=== PATIENT | male | born 1935 | race Caucasian/White ===

== ENCOUNTER → 2018-08-06 15:57 | Outpatient (CLI) | payer MEDICARE, OTHER, SELFPAY ==
--- NOTE | 2018-08-06 | DI.RAD.S_ITS ---
PROCEDURE: XR LUMBAR SPINE 2-3V INDICATIONS: LOW BACK PAIN TECHNIQUE: 3 views of the lumbar spine were acquired. COMPARISON: None. FINDINGS: Bones: No fracture or focal osseous destruction. Multilevel degenerative endplate sclerosis and spurring. Diffuse facet arthropathy. Grade 1 retrolisthesis of L1 on L2. Moderate narrowing of the lumbar disc spaces diffusely. Trace anterolisthesis of L4 on L5. There is dextrocurvature of the thoracolumbar junction Soft tissues: Overlying bowel gas pattern is normal. No suspicious soft tissue calcifications. Scattered vascular calcifications seen in the aorta. IMPRESSION: Moderate multilevel lumbar spondylosis and diffuse facet arthropathy. Grade 1 retrolisthesis of L1 on L2. Trace anterolisthesis of L4 on L5. Lateral curvature of the spine as above Dictated by: Curtis Goodman M.D. on 08/06/2018 at 16:58 Approved by: Curtis Goodman M.D. on 08/06/2018 at 17:01
--- NOTE | 2018-08-06 | DI.RAD.S_ITS ---
PROCEDURE: XR SHOULDER LT MIN 2V INDICATIONS: L SHOULDER PAIN TECHNIQUE: 3 views of the shoulder were acquired. COMPARISON: None. FINDINGS: Bones: No fractures or dislocations. No suspicious bony lesions. Visualized ribs appear intact. Moderate acromioclavicular and glenohumeral joint degeneration. Soft tissues: No suspicious soft tissue calcifications. IMPRESSION: Moderate left shoulder joint degeneration. Dictated by: Curtis Goodman M.D. on 08/06/2018 at 17:01 Approved by: Curtis Goodman M.D. on 08/06/2018 at 17:03
== END ==
PROVIDERS: Family Provider Internal Medicine; PCP Internal Medicine; Visit Provider Internal Medicine
DX: M54.5 Low back pain (principal); M47.816 Spondylosis without myelopathy or radiculopathy, lumbar region; M43.16 Spondylolisthesis, lumbar region; M25.512 Pain in left shoulder; M19.012 Primary osteoarthritis, left shoulder
CPT/HCPCS: 72100; 73030

== ENCOUNTER 2018-08-15 13:00 | Inpatient (IN) | payer MEDICARE, OTHER, SELFPAY ==
[2018-08-15] VITALS (15 sets, daily range): BP systolic 131–163; BP diastolic 50–96; PULSE 57–76; RESP 15–20; TEMP 36.4–37; O2SAT 95–100; BMI 25.4
[2018-08-15 13:38] LABS: Add Manual Diff / Slide Review NO; Basophils Absolute Auto 100 /uL (0-100); Basophils Percent Auto 1.2 % (0-2); Eosinophils Absolute Auto 200 /uL (0-450); Eosinophils Percent Auto 3.2 % (2-4); Hemoglobin 7.3 g/dL (13.5-17.5); Lymphocytes Absolute Auto 1700 /uL (1100-4500); Lymphocytes Percent Auto 25.6 % (25-40); Mean Corpuscular HGB Conc 33.6 % (30-36); Mean Corpuscular Hemoglobin 33.2 PG (26-34); Mean Corpuscular Volume 98.8 fL (80-100); Monocytes Absolute Auto 600 /uL (0-900); Monocytes Percent Auto 8.9 % (3-14); Neutrophils Absolute Auto 3900 /uL (1500-7000); Neutrophils Percent Auto 61.1 % (50-75); Platelet Count 264 X10^3/uL (150-400); Red Blood Cell Count 2.19 X10^6/uL (4.5-5.9); Red Cell Distribution Width 14.2 % (11.6-14.8); White Blood Cell Count 6.5 X10^3/uL (4.5-11.0)
[2018-08-15 13:42] LABS: Hematocrit 21.7 % (41-53)
[2018-08-15 13:44] LABS: Prothrombin Time 11.9 SECONDS (10.1-12.7)
--- NOTE | 2018-08-15 13:46 | ED_ITS ---
HPI - Recheck/Abnormal Lab/Rx General Chief Complaint: Recheck/Abnormal Lab/Rx Stated Complaint: states his potasium levels are high Time Seen by Provider: 08/15/18 13:44 Source: patient Mode of arrival: ambulatory Limitations: no limitations History of Present Illness HPI narrative: This is an 83-year-old male who comes for lab abnormalities. Patient had outpatient labs with Dr. Benjamin and was noted that his creatinine and potassium were elevated in the 6 range. Patient states he has felt crummy lately. He was recently having some left shoulder and back pain. 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 He took Mobic for 2 days. He states he just could E afterwards, he felt like nothing tastes did well, he had not have any interest in food. So we just in front he also drinks maybe 3 to 4 glasses with would daily. He states that is usually a combination of water and coffee. He denies any lightheadedness, no passing-out, no chest pain, no shortness of breath no nausea no vomiting. No diarrhea. Patient Diana Ugarte is constipated but is been having bowel movements. He has had frequent urination but states it is less. It does not seem like very small amounts. He has also noticed no changes in coloration. Patient only took 2 days of Mobic. He is on lisinopril, levothyroxine and lovastatin. Denies any blood thinners. No prior surgeries. He states he got a nosebleed a rash while taking the Mobic. Denies tobacco, denies illicit. Has 3 alcoholic drinks weekly. 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 Related Data Home Medications Medication Instructions Recorded Confirmed levothyroxine 175 mcg PO DAILY 08/15/18 08/15/18 lisinopril 5 mg PO DAILY 08/15/18 08/15/18 lovastatin 40 mg PO QPM 08/15/18 08/15/18 Allergies Allergy/AdvReac Type Severity Reaction Status Date / Time codeine Allergy Unknown Verified 08/15/18 13:43 Penicillins Allergy Verified 08/15/18 13:10 Review of Systems Review of Systems ROS Unobtainable: All systems reviewed & are unremarkable except as noted in HPI and below Constitutional Reports anorexia, Denies chills, Denies excessive sweating, Denies fatigue, Denies fever(s), Denies lethargy, Reports poor appetite and Denies weakness Cardiovascular Denies chest pain, Denies edema, Denies irregular heart rhythm, Denies lightheadedness, Denies palpitations, Denies dyspnea, Denies dyspnea on exertion and Denies orthopnea Respiratory Denies change in phlegm color, Denies chest congestion, Denies cough, Denies dyspnea, Denies dyspnea on exertion and Denies wheezing Gastrointestinal Gastrointestinal: Denies abdominal pain, Denies melena, Denies hematochezia, Denies change in bowel habits, Reports early satiety, Denies diarrhea, Denies nausea and Denies vomiting Genitourinary Denies hematuria, Denies difficulty urinating, Denies dysuria, Denies flank pain, Reports urinary frequency, Denies urinary hesitancy, Denies urinary incontinence, Denies urinary urgency and Reports other (smaller amounts) Musculoskeletal Reports back pain, Denies myalgias, Denies arthralgias, Denies muscle weakness, Denies numbness and Denies tingling Neurologic Denies focal weakness, Denies numbness, Denies sensory deficit, Denies tingling and Denies weakness Endocrine Denies excessive sweating, Denies fatigue and Denies palpitations Allergic/Immunologic Denies wheezing [facility] Medical History Hypothyroidism (Acute) Hyperlipidemia (Acute) Hypertension (Acute) Social History household members: spouse Smoking Status: Former smoker alcohol intake: current Social History (Updated 08/15/18 @ 19:07 by Lizette Wilkerson DO) household members: spouse Smoking Status: Former smoker alcohol intake: current substance use type: does not use Exam Narrative Exam Narrative: GENERAL: Alert and oriented x three, well-nourished, well- appearing elderly male in no acute distress. Patient does appear pale. HEENT: Head normocephalic, atraumatic, EOMI, pupils reactive, face symmetric, moist mucous membranes NECK: Supple, full range of motion CARDIOVASCULAR: Regular rate and rhythm without murmurs, rubs or gallops. RESPIRATORY: Breath sounds equal bilaterally, no wheezes rales or rhonchi. ABDOMEN: Soft, nontender. Normoactive bowel sounds all 4 quadrants. No guarding or rebound, rigidity, no mass : No CVA tenderness EXTREMITIES: Normal range of motion, no clubbing or edema. Neurovascularly intact NEUROLOGICAL: Cranial nerves II through XII grossly intact. Moving all extremities SKIN: Warm, dry, no petechiae, no rashes or lesions. Initial Vital Signs Initial Vital Signs: Vital Signs Temperature 97.5 F L 08/15/18 13:04 Pulse Rate 66 08/15/18 13:04 Respiratory Rate 20 08/15/18 13:04 Blood Pressure 151/65 H 08/15/18 13:04 Pulse Oximetry 100 08/15/18 13:04 Course Orders Ordered: ED Orders 08/15/18 13:14 EKG-12 Lead Stat 08/15/18 13:26 CBC [Complete Blood Count AUTO DIFF] Stat Comprehensive Metabolic Panel Stat Lipase Stat Partial Thromboplastin Time Stat Prothrombin Time INR Stat Troponin & CK Cardiac Panel Stat 08/15/18 13:30 EKG-12 Lead Stat 08/15/18 14:13 CT kidney ureter bladder (KUB) Stat 08/15/18 15:02 Urinalysis and Microscopic Stat 08/15/18 15:42 Type and Screen Stat 08/15/18 16:40 Ferritin Urgent Iron Profile (w/ % Saturation) Urgent Potassium Stat 08/15/18 21:00 Potassium Urgent 08/16/18 05:00 Basic Metabolic Panel Routine Complete Blood Count AUTO DIFF Routine Acetaminophen (Tylenol) 650 mg PO Q6HR PRN PRN Reason: As Needed for Fever/Mild Pain Bisacodyl (Dulcolax) 10 mg PO DAILY PRN PRN Reason: Constipation Sodium Chloride (Normal Saline 0.9%) 1,000 mls @ 150 mls/hr IV CONT LEILANI Last Admin: 08/15/18 18:28 Dose: 150 mls/hr Levothyroxine Sodium (Synthroid) 100 mcg PO 0600 LEILANI Levothyroxine Sodium (Synthroid) 75 mcg PO 0600 [facility] Discontinued Medications Albuterol (Ventolin) 2.5 mg INH NOW ONE Stop: 08/15/18 14:22 Last Admin: 08/15/18 14:32 Dose: 2.5 mg Dextrose (D50w) 25 gm IV NOW ONE Stop: 08/15/18 14:22 Last Admin: 08/15/18 14:32 Dose: 25 gm Sodium Chloride (Normal Saline 0.9%) 1,000 mls @ 1,000 mls/hr IV BOLUS ONE Stop: 08/15/18 14:44 Last Infusion: 08/15/18 16:33 Dose: 1,000 mls/hr Admin: 08/15/18 13:50 Dose: 1,000 mls/hr Calcium Gluconate 4.65 meq/ (Sodium Chloride) 60 mls @ 120 mls/hr IV NOW ONE Stop: 08/15/18 13:46 Last Infusion: 08/15/18 15:46 Dose: 0 mls/hr Admin: 08/15/18 14:10 Dose: 120 mls/hr Sodium Chloride (Normal Saline 0.9%) 1,000 mls @ 1,000 mls/hr IV BOLUS ONE Stop: 08/15/18 16:26 Last Admin: 08/15/18 17:22 Dose: 1,000 mls/hr Insulin Human Regular (Humulin R) 10 unit IV NOW ONE Stop: 08/15/18 14:22 Last Admin: 08/15/18 14:32 Dose: 10 unit Sodium Polystyrene Sulfonate (Kayexalate) 30 gm PO NOW ONE Stop: 08/15/18 13:48 Last Admin: 08/15/18 14:11 Dose: 30 gm Vital Signs - 8 hr 08/15/18 13:04 08/15/18 14:00 08/15/18 14:30 Temperature 97.5 F L Pulse Rate 66 60 62 Respiratory Rate 20 15 17 Blood Pressure 151/65 H Blood Pressure [Right Arm] 147/56 H 146/50 H Pulse Oximetry 100 100 100 08/15/18 15:00 08/15/18 15:17 08/15/18 15:30 Temperature Pulse Rate 75 62 62 Respiratory Rate 16 15 Blood Pressure Blood Pressure [Right Arm] 141/58 H 163/66 H 132/54 L Pulse Oximetry 100 95 08/15/18 16:15 08/15/18 16:16 08/15/18 17:16 Temperature 98.4 F 98.6 F Pulse Rate 64 76 64 Respiratory Rate 15 19 Blood Pressure 148/65 H 149/63 H Blood Pressure [Right Arm] 131/64 Pulse Oximetry 100 MDM - Recheck/Abnormal Lab/Rx Lab Data Attestation: I reviewed the patient's lab results. Result diagrams: 08/15/18 13:26 08/15/18 16:40 Lab Results 07/10/19 07/10/19 07/10/19 Range/Units 13:26 13:26 13:26 WBC 6.5 (4.5-11.0) X10^3/uL RBC 2.19 L (4.5-5.9) X10^6/uL Hgb 7.3 L (13.5-17.5) g/dL Hct 21.7 L (41-53) % MCV 98.8 (80-100) fL MCH 33.2 (26-34) PG MCHC 33.6 (30-36) % RDW 14.2 (11.6-14.8) % Plt Count 264 (150-400) X10^3/uL Neut % (Auto) 61.1 (50-75) % Lymph % (Auto) 25.6 (25-40) % [place] % (Auto) 8.9 (3-14) % Eos % (Auto) 3.2 (2-4) % Baso % (Auto) 1.2 (0-2) % Neut # (Auto) 3900 (5640-9921) /uL Lymph # (Auto) 1700 (1145-3841) /uL [place] # (Auto) 600 (0-900) /uL Eos # (Auto) 200 (0-450) /uL Baso # (Auto) 100 (0-100) /uL PT 11.9 (10.1-12.7) SECONDS INR 1.0 (0.9-1.3) APTT 26 L (26.4-36.2) SECONDS Sodium 144 (137-145) mmol/L Potassium 7.1 H* (3.4-5.1) mmol/L Chloride 115 H (98-107) mmol/L Carbon Dioxide 16 L (22-32) mmol/L BUN 109 H* (9-20) mg/dL Creatinine 7.10 H (0.66-1.25) mg/dL Estimated GFR 7.4 L (>60) mL/min BUN/Creatinine Ratio 15.4 (6-22) Glucose 120 H (80-110) mg/dL Calcium 10.2 (8.4-10.2) mg/dL Iron (49-181) ug/dL TIBC (261-462) ug/dL % Saturation (20-50) % Transferrin (206-381) mg/dL Ferritin (17.9-464) ng/mL Total Bilirubin 0.6 (0.2-1.3) mg/dL AST 19 (17-59) IU/L ALT 13 L (21-72) IU/L Alkaline Phosphatase 62 (38-126) U/L Total Creatine Kinase (55-170) U/L CK-MB (CK-2) CK-MB (CK-2) Rel Index Troponin I (0.01-0.034) ng/mL Total Protein 7.8 (6.3-8.2) g/dL Albumin 4.3 (3.5-5.0) g/dL Globulin 3.5 (1.7-4.1) g/dL Albumin/Globulin Ratio 1.2 (1.0-2.8) Lipase (23-300) U/L Specimen Hemolysis Urine Color Urine Appearance Urine pH (4.5-8.0) Ur Specific [place] (1.000-1.035) Urine Protein (Negative) Urine Glucose (UA) (Negative) g/dL Urine Ketones (NEGATIVE) Urine Occult Blood (Negative) Urine Nitrate (Negative) Urine Bilirubin (NEGATIVE) Urine Urobilinogen (0.2) E.U./dL Ur Leukocyte Esterase (NEGATIVE) Urine RBC (0-5/HPF) Urine WBC (0-5/HPF) Ur Squamous Epith Cells (0-5/HPF) Amorphous Sediment Urine Bacteria (None) Ur Culture Indicated? Blood Type Antibody Screen 08/15/18 08/15/18 08/15/18 Range/Units 13:26 15:02 15:42 WBC (4.5-11.0) X10^3/uL RBC (4.5-5.9) X10^6/uL Hgb (13.5-17.5) g/dL Hct (41-53) % MCV (80-100) fL MCH (26-34) PG MCHC (30-36) % RDW (11.6-14.8) % Plt Count (150-400) X10^3/uL Neut % (Auto) (50-75) % Lymph % (Auto) (25-40) % [place] % (Auto) (3-14) % Eos % (Auto) (2-4) % Baso % (Auto) (0-2) % Neut # (Auto) (3147-8201) /uL Lymph # (Auto) (7657-9648) /uL [place] # (Auto) (0-900) /uL Eos # (Auto) (0-450) /uL Baso # (Auto) (0-100) /uL PT (10.1-12.7) SECONDS INR (0.9-1.3) APTT (26.4-36.2) SECONDS Sodium Cancelled (137-145) mmol/L Potassium Cancelled (3.4-5.1) mmol/L Chloride Cancelled (98-107) mmol/L Carbon Dioxide Cancelled (22-32) mmol/L BUN Cancelled (9-20) mg/dL Creatinine Cancelled (0.66-1.25) mg/dL Estimated GFR Cancelled (>60) mL/min BUN/Creatinine Ratio Cancelled (6-22) Glucose Cancelled (80-110) mg/dL Calcium Cancelled (8.4-10.2) mg/dL Iron (49-181) ug/dL TIBC (261-462) ug/dL % Saturation (20-50) % Transferrin (206-381) mg/dL Ferritin (17.9-464) ng/mL Total Bilirubin Cancelled (0.2-1.3) mg/dL AST Cancelled (17-59) IU/L ALT Cancelled (21-72) IU/L Alkaline Phosphatase Cancelled (38-126) U/L Total Creatine Kinase 82 (55-170) U/L CK-MB (CK-2) TNP CK-MB (CK-2) Rel Index TNP Troponin I 0.020 (0.01-0.034) ng/mL Total Protein Cancelled (6.3-8.2) g/dL Albumin Cancelled (3.5-5.0) g/dL Globulin Cancelled (1.7-4.1) g/dL Albumin/Globulin Ratio Cancelled (1.0-2.8) Lipase 197 (23-300) U/L Specimen Hemolysis Cancelled Urine Color Yellow Urine Appearance Sl cloudy Urine pH 5.0 (4.5-8.0) Ur Specific [place] 1.020 (1.000-1.035) Urine Protein 1+ H (Negative) Urine Glucose (UA) Negative (Negative) g/dL Urine Ketones Negative (NEGATIVE) Urine Occult Blood 1+ H (Negative) Urine Nitrate Negative (Negative) Urine Bilirubin Negative (NEGATIVE) Urine Urobilinogen 0.2 (0.2) E.U./dL Ur Leukocyte Esterase Negative (NEGATIVE) Urine RBC 1-5/hpf (0-5/HPF) Urine WBC 0-1/hpf (0-5/HPF) Ur Squamous Epith Cells None seen (0-5/HPF) Amorphous Sediment 2+ Urine Bacteria Few (2-10) H (None) Ur Culture Indicated? Cult not indicated Blood Type A Positive Antibody Screen Negative 08/15/18 08/15/18 08/15/18 Range/Units 16:40 16:40 16:40 WBC (4.5-11.0) X10^3/uL RBC (4.5-5.9) X10^6/uL Hgb (13.5-17.5) g/dL Hct (41-53) % MCV (80-100) fL MCH (26-34) PG MCHC (30-36) % RDW (11.6-14.8) % Plt Count (150-400) X10^3/uL Neut % (Auto) (50-75) % Lymph % (Auto) (25-40) % [place] % (Auto) (3-14) % Eos % (Auto) (2-4) % Baso % (Auto) (0-2) % Neut # (Auto) (6799-3092) /uL Lymph # (Auto) (7315-9415) /uL [place] # (Auto) (0-900) /uL Eos # (Auto) (0-450) /uL Baso # (Auto) (0-100) /uL PT (10.1-12.7) SECONDS INR (0.9-1.3) APTT (26.4-36.2) SECONDS Sodium (137-145) mmol/L Potassium 6.0 H (3.4-5.1) mmol/L Chloride (98-107) mmol/L Carbon Dioxide (22-32) mmol/L BUN (9-20) mg/dL Creatinine (0.66-1.25) mg/dL Estimated GFR (>60) mL/min BUN/Creatinine Ratio (6-22) Glucose (80-110) mg/dL Calcium (8.4-10.2) mg/dL Iron 124 (49-181) ug/dL TIBC 240 L (261-462) ug/dL % Saturation 52 H (20-50) % Transferrin 179 L (206-381) mg/dL Ferritin 550.0 H (17.9-464) ng/mL Total Bilirubin (0.2-1.3) mg/dL AST (17-59) IU/L ALT (21-72) IU/L Alkaline Phosphatase (38-126) U/L Total Creatine Kinase (55-170) U/L CK-MB (CK-2) CK-MB (CK-2) Rel Index Troponin I (0.01-0.034) ng/mL Total Protein (6.3-8.2) g/dL Albumin (3.5-5.0) g/dL Globulin (1.7-4.1) g/dL Albumin/Globulin Ratio (1.0-2.8) Lipase (23-300) U/L Specimen Hemolysis Urine Color Urine Appearance Urine pH (4.5-8.0) Ur Specific [place] (1.000-1.035) Urine Protein (Negative) Urine Glucose (UA) (Negative) g/dL Urine Ketones (NEGATIVE) Urine Occult Blood (Negative) Urine Nitrate (Negative) Urine Bilirubin (NEGATIVE) Urine Urobilinogen (0.2) E.U./dL Ur Leukocyte Esterase (NEGATIVE) Urine RBC (0-5/HPF) Urine WBC (0-5/HPF) Ur Squamous Epith Cells (0-5/HPF) Amorphous Sediment Urine Bacteria (None) Ur Culture Indicated? Blood Type Antibody Screen Imaging Data CT scan - abdomen: Radiologist's impression: [place] [address] CT Scan Report Signed Patient: Brad Benoit [facility]#: [id number] : 6Acct:[id number] Age/Sex: 83 / MDate of Service: 08/15/18 Loc: ED Accession Number: [id number] Procedure: CT kidney ureter bladder (KUB) Ordering Provider: Lizette Wilkerson D.O. PROCEDURE: CT KIDNEY URETER BLADDER (KUB) INDICATIONS: renal failure, hyperkalemia. TECHNIQUE: Noncontrast 5 mm thick sections acquired from the diaphragms to the symphysis. 5 mm thick coronal and sagittal reformats were then performed. For radiation dose reduction, the following was used: automated exposure control, adjustment of mA and/or kV according to patient size. COMPARISON: None. FINDINGS: Image quality: Excellent. Lung bases: Lung bases are clear. Heart size is normal. Urinary system: Both kidneys are normal in size. No kidney stones. No hydronephrosis or perinephric fat stranding. There is an exophytic water density upper pole right renal cortical small cysts requiring no followup. Both ureters appear non-dilated throughout their expected courses. Bladder wall thickness is normal; no calcified bladder stones. There is a bladder wall diverticulum at the posterior midline measuring up to 4.0 x 3.1 cm seen centered on series 2 image 64. This is located above the level of the ureteral insertions. Other solid organs: Liver is normal in size. Gallbladder is partially contracted. Pancreas is normal in contours. Spleen is normal in size. No adrenal nodules. Peritoneum and bowel: Unenhanced bowel loops demonstrate normal wall thickness and caliber. No free fluid or air. Nodes and vessels: No retroperitoneal or mesenteric adenopathy by size criteria. Aorta and inferior vena cava are normal in caliber. Abdominal wall: No ventral hernias. Pelvis: No free pelvic fluid. No inguinal hernias or adenopathy. Bones: No suspicious bony lesions. No vertebral body compression fractures. IMPRESSION: No hydronephrosis or nephrolithiasis found. Renal parenchyma is within normal limits for age and body habitus. Source of current renal insufficiency is not found. Incidental note is made of the posterior bladder wall diverticulum measuring only 4.0 x 3.1 cm without impingement on the expected course of the distal ureters bilaterally which insert on the bladder wall below the level of the diverticulum. Dictated by: Doe Alvarez M.D. on 08/15/2018 at 15:08 Approved by: Doe Alvarez M.D. on 08/15/2018 at 15:17 ECG Data Attestation: I personally reviewed and interpreted this ECG as follows: Prior ECG tracings: not available for review Interpretation: Sinus bradycardia rate of 59 P are 166 QRS of 93 and QTC of 383. Patient has peaked T-waves no depression, no sinusoidal changes. No prior's available for review. MDM Narrative Medical decision making narrative: Patient's creatinine and potassium are equal at 7.1. He has peaked T-waves. He has no acute changes other than some taste changes and feeling crummy. Patient potentially could have a combination with his Mobic and lisinopril that caused his renal failure although I do not have any prior labs that are recent for comparison. He also appears to be anemic and unclear if this is new. Type and cross ordered. CT shows patient has incidental no a posterior bladder wall diverticulum measuring 4 x 3 cm without impingement on the expected course of the distal ureters bilaterally. Otherwise there are no obvious causes for obstruction or patient's renal dysfunction. I spoke with Dr. Yee who accepts. Patient I did discuss his code status, he is full code but asks for no prolonged coding and he does not want prolonged intubation. Discharge Plan Departure Patient Disposition: Admitted As Inpatient Clinical Impression: Hyperkalemia, Acute renal failure, Anemia Discharge Date/Time: 08/15/18 16:34 Interventions: ED Discharge Assessment Last Done: 08/15/18 16:34 Admit Date/Time: 08/15/18 15:45 Admit Provider: Anatoliy Yee
[2018-08-15 13:47] LABS: PTT Partial Thromboplastin Tim 26 SECONDS (26.4-36.2)
[2018-08-15] MEDS: SODIUM CHLORIDE 0.9% 1,000 ML 1000 ML IV ×2 (13:50→17:22)
[2018-08-15 14:08] LABS: Creatine Kinase 82 U/L (55-170); Lipase 197 U/L (23-300)
[2018-08-15] MEDS: CALCIUM GLUCONATE 4.65 MEQ in SODIUM CHLORIDE 0.9% 50 ML 120 ML IV (14:10)
[2018-08-15 14:11] LABS: Alanine Aminotransferase 13 IU/L (21-72); Albumin 4.3 g/dL (3.5-5.0); Albumin Globulin Ratio 1.2 (1.0-2.8); Alkaline Phosphatase 62 U/L (38-126); Aspartate Aminotransferase 19 IU/L (17-59); BUN Creatinine Ratio 15.4 (6-22); Bilirubin Total 0.6 mg/dL (0.2-1.3); Calcium 10.2 mg/dL (8.4-10.2); Carbon Dioxide 16 mmol/L (22-32); Chloride 115 mmol/L (98-107); Estimated Glomerular Filt Rate 7.4 mL/min (>60); Globulin 3.5 g/dL (1.7-4.1); Glucose 120 mg/dL (80-110); Sodium 144 mmol/L (137-145); Total Protein 7.8 g/dL (6.3-8.2)
[2018-08-15] MEDS: SODIUM POLYSTYRENE SULFON/SORB 15 GM/60 ML CUP 30 GM PO ×2 (14:11→22:47)
--- NOTE | 2018-08-15 14:13 | DI.CT.S_ITS ---
PROCEDURE: CT KIDNEY URETER BLADDER (KUB) INDICATIONS: renal failure, hyperkalemia. TECHNIQUE: Noncontrast 5 mm thick sections acquired from the diaphragms to the symphysis. 5 mm thick coronal and sagittal reformats were then performed. For radiation dose reduction, the following was used: automated exposure control, adjustment of mA and/or kV according to patient size. COMPARISON: None. FINDINGS: Image quality: Excellent. Lung bases: Lung bases are clear. Heart size is normal. Urinary system: Both kidneys are normal in size. No kidney stones. No hydronephrosis or perinephric fat stranding. There is an exophytic water density upper pole right renal cortical small cysts requiring no followup. Both ureters appear non-dilated throughout their expected courses. Bladder wall thickness is normal; no calcified bladder stones. There is a bladder wall diverticulum at the posterior midline measuring up to 4.0 x 3.1 cm seen centered on series 2 image 64. This is located above the level of the ureteral insertions. Other solid organs: Liver is normal in size. Gallbladder is partially contracted. Pancreas is normal in contours. Spleen is normal in size. No adrenal nodules. Peritoneum and bowel: Unenhanced bowel loops demonstrate normal wall thickness and caliber. No free fluid or air. Nodes and vessels: No retroperitoneal or mesenteric adenopathy by size criteria. Aorta and inferior vena cava are normal in caliber. Abdominal wall: No ventral hernias. Pelvis: No free pelvic fluid. No inguinal hernias or adenopathy. Bones: No suspicious bony lesions. No vertebral body compression fractures. IMPRESSION: No hydronephrosis or nephrolithiasis found. Renal parenchyma is within normal limits for age and body habitus. Source of current renal insufficiency is not found. Incidental note is made of the posterior bladder wall diverticulum measuring only 4.0 x 3.1 cm without impingement on the expected course of the distal ureters bilaterally which insert on the bladder wall below the level of the diverticulum. Dictated by: Doe Alvarez M.D. on 08/15/2018 at 15:08 Approved by: Doe Alvarez M.D. on 08/15/2018 at 15:17
[2018-08-15 14:17] LABS: HEMOLYSIS 75 (0-50)
[2018-08-15 14:21] LABS: Blood Urea Nitrogen 109 mg/dL (9-20)
[2018-08-15 14:30] LABS: Potassium 7.1 mmol/L (3.4-5.1)
[2018-08-15] MEDS: ALBUTEROL 2.5 MG/3 ML NEB (ADULT) INH (14:32)
[2018-08-15] MEDS: DEXTROSE 50 % IN WATER 25 GM/50 ML SYRINGE IV (14:32)
[2018-08-15] MEDS: INSULIN REGULAR 100 UNIT/ML 3 ML VIAL 10 UNIT IV (14:32)
[2018-08-15 15:11] LABS: Appearance Urine UA SL CLOUDY; Bilirubin Urine UA NEGATIVE (NEGATIVE); Color Urine UA YELLOW; Glucose Urine UA NEGATIVE (Negative); Ketones Urine UA NEGATIVE (NEGATIVE); Leukocyte Esterase Urine UA NEGATIVE (NEGATIVE); Nitrite Urine UA NEGATIVE (Negative); Occult Blood Urine UA 1+ (Negative); Protein Urine UA 1+ (Negative); Urobilinogen Urine UA 0.2 E.U./dL (0.2)
[2018-08-15 15:24] LABS: RBC Urine 1-5/HPF (0-5/HPF); WBC Urine 0-1/HPF (0-5/HPF)
[2018-08-15 15:25] LABS: Amorphous Sediment Urine 2+; Bacteria Urine Few (2-10); Culture Indicated Urine Cult Not Indicated; Squamous Epithelial Cell Urine None Seen (0-5/HPF)
--- NOTE | 2018-08-15 16:22 | P.HP_ITS ---
History of Present Illness Date Patient Seen: 08/15/18 Chief complaint: states his potasium levels are high Narrative: Patient is an 83-year-old male with history of hypertension, hyperlipidemia, hypothyroidism sent to the ER by his PCP Dr. Benjamin due to concerning labs. Outpatient blood work showed new renal failure with creatinine 6.0, BUN 100 and acute hyperkalemia with potassium 6.3. Blood work in the ER s howed creatinine 7.10 109, potassium 7.1. Baseline BUN is 21 and creatinine 1.1 on 01/17/2017. Patient received initial treatment in ER consisting of calcium gluconate, albuterol, insulin and glucose, and Kayexalate. He also received initial 2 L IV fluid. A repeat serum potassium is pending. EKG showed peaked T-wave in lead V3 but otherwise unremarkable. CT KUB noncontrast did not show hydronephrosis and both kidneys were noted normal in size and echogenicity. He has nonsignificant right kidney small cysts and bladder diverticulum. Patient also noted to be severely anemic with hemoglobin 7.3 and hematocrit 21.7 on ER labs. Patient has not been feeling well for about a week. He reports diminished appetite with decreased intake of food and water as well as awful taste in his mouth. He has had pain across his upper abdomen for a while now. He reports 5 lb weight loss in the past month and 10 lb weight loss in the past year. His last colonoscopy was about 10 years ago. He denies nausea, vomiting, diarrhea, melena or bright red blood. He reports frequent urination in small amounts but has not noticed drop in urine volume. He was started on Mobic last week due to complaints of nonacute pain in his shoulder and legs although other symptoms started prior to the Mobic. His other medications which are lisinopril, lovastatin and levothyroxine are not new to him. He denies chest pain, dyspnea. He has history of aortic stenosis, denies CAD. He has family history of CAD. Patient History Medical History (Updated 08/15/18 @ 16:30 by nAatoliy Yee MD) Hypothyroidism (Acute) Hyperlipidemia (Acute) Hypertension (Acute) Social History household members: spouse Smoking Status: Former smoker alcohol intake: current Family & Social History Safety & Behavioral: Feels Safe in Current Yes Environment Been Physically Hurt or No Threatened By a Person Tobacco & Substance use: Smoking Status Former smoker alcohol intake frequency a few times a week Substance Use Type does not use Meds Home Medications Medication Instructions Recorded Confirmed Type levothyroxine 175 mcg PO DAILY 08/15/18 08/15/18 History lisinopril 5 mg PO DAILY 08/15/18 08/15/18 History lovastatin 40 mg PO QPM 08/15/18 08/15/18 History Allergies Allergy/AdvReac Type Severity Reaction Status Date / Time codeine Allergy Unknown Verified 08/15/18 13:43 Penicillins Allergy Verified 08/15/18 13:10 Review of Systems Review of Systems All systems reviewed & are unremarkable except as noted in HPI and below Exam Vital Signs (past 8 hours): - 08/15/18 13:04 08/15/18 15:17 08/15/18 16:15 Temperature 97.5 F L 98.4 F Pulse Rate 66 62 64 Respiratory Rate 20 15 15 Blood Pressure 151/65 H Blood Pressure [Right Arm] 163/66 H 131/64 Pulse Oximetry 100 95 100 Oxygen Delivery Method Room Air Narrative Exam Narrative: GENERAL: Alert pleasant gentleman in no acute distress HEAD: Atraumatic. Normocephalic. EYES: Pupils equal, round and reactive. Extraocular motions intact. No scleral icterus. No injection or drainage. OROPHARYNX: Unremarkable NECK: Trachea midline. No JVD or lymphadenopathy. CARDIOVASCULAR: Regular rate and rhythm, 3/6 aortic systolic murmur RESPIRATORY: Clear to auscultation bilaterally. GASTROINTESTINAL: Abdomen nondistended, soft, non-tender. No hepato- splenomegaly, no palpable masses. EXTREMITIES: No peripheral edema. NEUROLOGICAL: Alert, well oriented, speech is intact, normal bilateral upper and lower extremity strength SKIN: warm, dry, no rash Objective Labs Result Diagrams: 08/15/18 13:26 08/15/18 13:26 Labs: Laboratory Results - last 24 hr 08/15/18 08/15/18 08/15/18 13:26 13:26 13:26 WBC 6.5 RBC 2.19 L Hgb 7.3 L Hct 21.7 L MCV 98.8 MCH 33.2 MCHC 33.6 RDW 14.2 Plt Count 264 Neut % (Auto) 61.1 Lymph % (Auto) 25.6 [place] % (Auto) 8.9 Eos % (Auto) 3.2 Baso % (Auto) 1.2 Neut # (Auto) 3900 Lymph # (Auto) 1700 [place] # (Auto) 600 Eos # (Auto) 200 Baso # (Auto) 100 PT 11.9 INR 1.0 APTT 26 L Sodium 144 Potassium 7.1 H* Chloride 115 H Carbon Dioxide 16 L BUN 109 H* Creatinine 7.10 H Estimated GFR 7.4 L BUN/Creatinine Ratio 15.4 Glucose 120 H Calcium 10.2 Total Bilirubin 0.6 AST 19 ALT 13 L Alkaline Phosphatase 62 Total Creatine Kinase CK-MB (CK-2) CK-MB (CK-2) Rel Index Troponin I Total Protein 7.8 Albumin 4.3 Globulin 3.5 Albumin/Globulin Ratio 1.2 Lipase Specimen Hemolysis Urine Color Urine Appearance Urine pH Ur Specific [place] Urine Protein Urine Glucose (UA) Urine Ketones Urine Occult Blood Urine Nitrate Urine Bilirubin Urine Urobilinogen Ur Leukocyte Esterase Urine RBC Urine WBC Ur Squamous Epith Cells Amorphous Sediment Urine Bacteria Ur Culture Indicated? Blood Type 08/15/18 08/15/18 08/15/18 13:26 15:02 15:42 WBC RBC Hgb Hct MCV MCH MCHC RDW Plt Count Neut % (Auto) Lymph % (Auto) [place] % (Auto) Eos % (Auto) Baso % (Auto) Neut # (Auto) Lymph # (Auto) [place] # (Auto) Eos # (Auto) Baso # (Auto) PT INR APTT Sodium Cancelled Potassium Cancelled Chloride Cancelled Carbon Dioxide Cancelled BUN Cancelled Creatinine Cancelled Estimated GFR Cancelled BUN/Creatinine Ratio Cancelled Glucose Cancelled Calcium Cancelled Total Bilirubin Cancelled AST Cancelled ALT Cancelled Alkaline Phosphatase Cancelled Total Creatine Kinase 82 CK-MB (CK-2) TNP CK-MB (CK-2) Rel Index TNP Troponin I 0.020 Total Protein Cancelled Albumin Cancelled Globulin Cancelled Albumin/Globulin Ratio Cancelled Lipase 197 Specimen Hemolysis Cancelled Urine Color Yellow Urine Appearance Sl cloudy Urine pH 5.0 Ur Specific [place] 1.020 Urine Protein 1+ H Urine Glucose (UA) Negative Urine Ketones Negative Urine Occult Blood 1+ H Urine Nitrate Negative Urine Bilirubin Negative Urine Urobilinogen 0.2 Ur Leukocyte Esterase Negative Urine RBC 1-5/hpf Urine WBC 0-1/hpf Ur Squamous Epith Cells None seen Amorphous Sediment 2+ Urine Bacteria Few (2-10) H Ur Culture Indicated? Cult not indicated Blood Type A Positive Assessment & Plan Assessment & Plan narrative: This is an 83-year-old male with history of hype rtension, hyperlipidemia, hypothyroidism admitted due to severe renal failure and hyperkalemia as well as severe anemia. 1. Renal failure, likely acute -etiology likely pre renal possibly due to recent GI bleed and decreased p.o. intake versus intrarenal source; postobstructive unlikely with KUB CT showing absence of hydronephrosis -urinalysis with few bacteria, no excess RBC or WBC, no casts -non-anion gap metabolic acidosis present with bicarb 16 associated with renal failure -patient is making urine -volume resuscitate with IV fluids -recheck labs in a.m. -discussed with patient may need transfer to tertiary hospital for dialysis if renal failure not improving 2. Hyperkalemia, severe, due to renal failure -initial treatment in ED including fluids, calcium gluconate, insulin, glucose, albuterol, Kayexalate -peaked T-wave on EKG -cardiac monitoring in ICU -check repeat K -hold lisinopril and lovastatin 3. Hypothyroidism -continue levothyroxine 175 mcg q.d.
[2018-08-15 16:57] LABS: HEMOLYSIS < 15 (0-50)
[2018-08-15 17:13] LABS: HEMOLYSIS 17 (0-50); Iron 124 ug/dL (49-181)
[2018-08-15 17:24] LABS: Percent Iron Saturation 52 % (20-50); Total Iron Binding Capacity 240 ug/dL (261-462); Transferrin 179 mg/dL (206-381)
[2018-08-15] MEDS: SODIUM CHLORIDE 0.9% 1,000 ML 150 ML IV (18:28)
[2018-08-15 21:28] LABS: HEMOLYSIS < 15 (0-50)
[2018-08-15 21:29] LABS: Potassium 6.5 mmol/L (3.4-5.1)
[2018-08-15 22:07] LABS: BUN Creatinine Ratio 14.7 (6-22); Blood Urea Nitrogen 97 mg/dL (9-20); Calcium 9.5 mg/dL (8.4-10.2); Carbon Dioxide 15 mmol/L (22-32); Chloride 120 mmol/L (98-107); Estimated Glomerular Filt Rate 8.1 mL/min (>60); Glucose 106 mg/dL (80-110); HEMOLYSIS < 15 (0-50); Sodium 145 mmol/L (137-145)
[2018-08-15 22:08] LABS: Potassium 6.5 mmol/L (3.4-5.1)
[2018-08-15 22:16] LABS: Fractionated Inspired Oxygen 21; HCO3 ABG 13 mmol/L (22-26); Oxygen Saturation ABG 97 % (95-100); PCO2 ABG 26.1 mmHg (35-45); PO2 ABG 100 mmHg (80-100); TCO2 ABG 14 mmol/L (21-31); pH ABG 7.31 (7.35-7.45)
--- NOTE | 2018-08-15 22:25 | PC.NURSE ---
2200- Lavelle RICHEY notified of elevated potassium. Repeat labs drawn. Patient remains in NSR with transient bradycardia to 57. EKG morphology remains the same as admit. IVF infusing at 150cc/hr per order. ABG done and it shows mild metabolic acidosis. Lavelle monk. Will repeat Kaexalate when available from pharmacy. Creatinine trending down now 6.6 was 7.1. Labs to be repeated in the AM.
[2018-08-15 22:33] LABS: Magnesium 2.2 mg/dL (1.6-2.3)
[2018-08-15] MEDS: DEXTROSE 5% IV (23:19)
[2018-08-15] MEDS: SODIUM BICARB IV (23:19)
[2018-08-15] MEDS: WATER IV (23:19)
[2018-08-16] VITALS (23 sets, daily range): BP systolic 101–148; BP diastolic 45–85; PULSE 45–65; RESP 13–21; TEMP 36.4–36.9; O2SAT 92–100
[2018-08-16 01:48] LABS: BUN Creatinine Ratio 14.3 (6-22); Blood Urea Nitrogen 93 mg/dL (9-20); Calcium 9.3 mg/dL (8.4-10.2); Carbon Dioxide 16 mmol/L (22-32); Chloride 119 mmol/L (98-107); Estimated Glomerular Filt Rate 8.2 mL/min (>60); Glucose 124 mg/dL (80-110); HEMOLYSIS < 15 (0-50); Sodium 145 mmol/L (137-145)
[2018-08-16 05:18] LABS: BUN Creatinine Ratio 14.9 (6-22); Blood Urea Nitrogen 94 mg/dL (9-20); Calcium 9.4 mg/dL (8.4-10.2); Carbon Dioxide 17 mmol/L (22-32); Chloride 117 mmol/L (98-107); Estimated Glomerular Filt Rate 8.5 mL/min (>60); Glucose 119 mg/dL (80-110); HEMOLYSIS < 15 (0-50); Sodium 144 mmol/L (137-145)
[2018-08-16 05:20] LABS: Potassium 5.4 mmol/L (3.4-5.1)
[2018-08-16 05:47] LABS: Basophils Absolute Auto 0 /uL (0-100); Basophils Percent Auto 0.6 % (0-2); Eosinophils Absolute Auto 100 /uL (0-450); Eosinophils Percent Auto 2.4 % (2-4); Lymphocytes Absolute Auto 1400 /uL (1100-4500); Lymphocytes Percent Auto 23.6 % (25-40); Mean Corpuscular Hemoglobin 32.8 PG (26-34); Mean Corpuscular Volume 99.3 fL (80-100); Monocytes Absolute Auto 500 /uL (0-900); Monocytes Percent Auto 8.7 % (3-14); Neutrophils Absolute Auto 3800 /uL (1500-7000); Neutrophils Percent Auto 64.7 % (50-75); Platelet Count 194 X10^3/uL (150-400); Red Blood Cell Count 1.91 X10^6/uL (4.5-5.9); Red Cell Distribution Width 13.9 % (11.6-14.8); White Blood Cell Count 5.9 X10^3/uL (4.5-11.0)
[2018-08-16 05:56] LABS: Hemoglobin 6.3 g/dL (13.5-17.5)
[2018-08-16 05:57] LABS: Add Manual Diff / Slide Review SLIDE REVIEW
[2018-08-16] MEDS: LEVOTHYROXINE 100 MCG TABLET PO (06:20)
[2018-08-16] MEDS: LEVOTHYROXINE 75 MCG TABLET PO (06:20)
[2018-08-16 06:58] LABS: Anisocytosis 1+
--- NOTE | 2018-08-16 08:41 | CM.DANOTE ---
DCP: Case received, EMR reviewed and met with patient. Introduced self and role. Was able to obtain baseline health history and information from patient. Daughter, Ijeoma Camacho, also at bedside. Patient is an 83 year old male who admitted yesterday afternoon as advised from his primary care provider, secondary to lab results. He was admitted to the care of the hospitalist team. PCP: Dr. Benjamin. Payer: confirmed: Medicare/[facility]. Patient came to the hospital due to increased Potassium levels. He had been at his primary care clinic, lab results noted increase in potassium, as well as creatnine levels. Patient holds diagnosis of acute renal failure, as well as hyperkalemia, which he is being treated for. Met with patient in his room, daughterIjeoma at bedside. Patient pleasant, alert and oriented. Patient and daughter stated, some of the medications that he is on may have caused an increase in potassium. Patient is also noted to be anemic. He resides in [facility] with his spouse, Carol. He is independent at home. He stated that they are in the process of selling his home, and moving into [facility]. He stated that they are on the waiting list for the independent apartment. P: DCP to continue to follow closely. Patient should be able to go home when he is medically stable. Edilma Pa RN/Logistics Manager
--- NOTE | 2018-08-16 12:41 | PM.PN.1 ---
Subjective Date Patient Seen: 08/16/18 Interval history: Patient is 83-year-old male with history of hypertension, hyperlipidemia, hypothyroidism admitted due to severe renal failure and hyperkalemia as well as severe anemia. Overnight patient continues to feel reasonably well but does state his appetite is better and he does not have the awful taste in his mouth. He is maintaining good urine output. He is getting transfused 2 units PRBC. Stool was guaiac negative. Exam Vital Signs (past 8 hours): - 08/16/18 05:00 08/16/18 06:00 08/16/18 06:09 Temperature Pulse Rate 64 52 L 47 L Respiratory Rate 21 17 13 Blood Pressure 117/48 L 123/54 L 124/53 L Pulse Oximetry 100 99 100 08/16/18 06:42 08/16/18 06:59 08/16/18 07:00 Temperature 98.3 F 98.3 F Pulse Rate 51 L 52 L 59 L Respiratory Rate 17 21 18 Blood Pressure 121/55 L 101/45 L 101/45 L Pulse Oximetry 92 08/16/18 08:23 08/16/18 10:43 08/16/18 10:47 Temperature 98.3 F 98.3 F Pulse Rate 59 L 57 L 52 L Respiratory Rate 19 17 18 Blood Pressure 119/60 122/53 L 122/53 L Pulse Oximetry 100 08/16/18 11:03 Temperature 98.5 F Pulse Rate 56 L Respiratory Rate 15 Blood Pressure 127/52 L Pulse Oximetry Oxygen Delivery Method Room Air Oxygen Flow Rate 0 Narrative Exam Narrative: General: Alert, pleasant and cooperative male in no acute distress Lungs: Clear to auscultation Heart: Regular rhythm with previously noted moderate aortic stenosis murmur Extremities: No edema Neurological: Seems well oriented, nonfocal Skin: No rash or petechiae Objective Labs Result Diagrams: 08/16/18 04:55 08/16/18 04:55 Labs: Laboratory Results - last 24 hr 08/15/18 08/15/18 08/15/18 13:26 13:26 13:26 WBC 6.5 RBC 2.19 L Hgb 7.3 L Hct 21.7 L MCV 98.8 MCH 33.2 MCHC 33.6 RDW 14.2 Plt Count 264 Neut % (Auto) 61.1 Lymph % (Auto) 25.6 [place] % (Auto) 8.9 Eos % (Auto) 3.2 Baso % (Auto) 1.2 Neut # (Auto) 3900 Lymph # (Auto) 1700 [place] # (Auto) 600 Eos # (Auto) 200 Baso # (Auto) 100 RBC Morphology Anisocytosis PT 11.9 INR 1.0 APTT 26 L ABG pH ABG pCO2 ABG pO2 ABG HCO3 ABG Total CO2 ABG O2 Saturation ABG Base Excess FiO2 Sodium 144 Potassium 7.1 H* Chloride 115 H Carbon Dioxide 16 L BUN 109 H* Creatinine 7.10 H Estimated GFR 7.4 L BUN/Creatinine Ratio 15.4 Glucose 120 H Calcium 10.2 Magnesium Iron TIBC % Saturation Transferrin Ferritin Total Bilirubin 0.6 AST 19 ALT 13 L Alkaline Phosphatase 62 Total Creatine Kinase CK-MB (CK-2) CK-MB (CK-2) Rel Index Troponin I Total Protein 7.8 Albumin 4.3 Globulin 3.5 Albumin/Globulin Ratio 1.2 Lipase Specimen Hemolysis Urine Color Urine Appearance Urine pH Ur Specific [place] Urine Protein Urine Glucose (UA) Urine Ketones Urine Occult Blood Urine Nitrate Urine Bilirubin Urine Urobilinogen Ur Leukocyte Esterase Urine RBC Urine WBC Ur Squamous Epith Cells Amorphous Sediment Urine Bacteria Ur Culture Indicated? Nasal Screen MRSA (PCR) Blood Type Antibody Screen Crossmatch 08/15/18 08/15/18 08/15/18 13:26 15:02 15:42 WBC RBC Hgb Hct MCV MCH MCHC RDW Plt Count Neut % (Auto) Lymph % (Auto) [place] % (Auto) Eos % (Auto) Baso % (Auto) Neut # (Auto) Lymph # (Auto) [place] # (Auto) Eos # (Auto) Baso # (Auto) RBC Morphology Anisocytosis PT INR APTT ABG pH ABG pCO2 ABG pO2 ABG HCO3 ABG Total CO2 ABG O2 Saturation ABG Base Excess FiO2 Sodium Cancelled Potassium Cancelled Chloride Cancelled Carbon Dioxide Cancelled BUN Cancelled Creatinine Cancelled Estimated GFR Cancelled BUN/Creatinine Ratio Cancelled Glucose Cancelled Calcium Cancelled Magnesium Iron TIBC % Saturation Transferrin Ferritin Total Bilirubin Cancelled AST Cancelled ALT Cancelled Alkaline Phosphatase Cancelled Total Creatine Kinase 82 CK-MB (CK-2) TNP CK-MB (CK-2) Rel Index TNP Troponin I 0.020 Total Protein Cancelled Albumin Cancelled Globulin Cancelled Albumin/Globulin Ratio Cancelled Lipase 197 Specimen Hemolysis Cancelled Urine Color Yellow Urine Appearance Sl cloudy Urine pH 5.0 Ur Specific [place] 1.020 Urine Protein 1+ H Urine Glucose (UA) Negative Urine Ketones Negative Urine Occult Blood 1+ H Urine Nitrate Negative Urine Bilirubin Negative Urine Urobilinogen 0.2 Ur Leukocyte Esterase Negative Urine RBC 1-5/hpf Urine WBC 0-1/hpf Ur Squamous Epith Cells None seen Amorphous Sediment 2+ Urine Bacteria Few (2-10) H Ur Culture Indicated? Cult not indicated Nasal Screen MRSA (PCR) Blood Type A Positive Antibody Screen Negative Crossmatch See Detail 08/15/18 08/15/18 08/15/18 16:40 16:40 16:40 WBC RBC Hgb Hct MCV MCH MCHC RDW Plt Count Neut % (Auto) Lymph % (Auto) [place] % (Auto) Eos % (Auto) Baso % (Auto) Neut # (Auto) Lymph # (Auto) [place] # (Auto) Eos # (Auto) Baso # (Auto) RBC Morphology Anisocytosis PT INR APTT ABG pH ABG pCO2 ABG pO2 ABG HCO3 ABG Total CO2 ABG O2 Saturation ABG Base Excess FiO2 Sodium Potassium 6.0 H Chloride Carbon Dioxide BUN Creatinine Estimated GFR BUN/Creatinine Ratio Glucose Calcium Magnesium Iron 124 TIBC 240 L % Saturation 52 H Transferrin 179 L Ferritin 550.0 H Total Bilirubin AST ALT Alkaline Phosphatase Total Creatine Kinase CK-MB (CK-2) CK-MB (CK-2) Rel Index Troponin I Total Protein Albumin Globulin Albumin/Globulin Ratio Lipase Specimen Hemolysis Urine Color Urine Appearance Urine pH Ur Specific [place] Urine Protein Urine Glucose (UA) Urine Ketones Urine Occult Blood Urine Nitrate Urine Bilirubin Urine Urobilinogen Ur Leukocyte Esterase Urine RBC Urine WBC Ur Squamous Epith Cells Amorphous Sediment Urine Bacteria Ur Culture Indicated? Nasal Screen MRSA (PCR) Blood Type Antibody Screen Crossmatch 08/15/18 08/15/18 08/15/18 19:10 21:14 21:14 WBC RBC Hgb Hct MCV MCH MCHC RDW Plt Count Neut % (Auto) Lymph % (Auto) [place] % (Auto) Eos % (Auto) Baso % (Auto) Neut # (Auto) Lymph # (Auto) [place] # (Auto) Eos # (Auto) Baso # (Auto) RBC Morphology Anisocytosis PT INR APTT ABG pH ABG pCO2 ABG pO2 ABG HCO3 ABG Total CO2 ABG O2 Saturation ABG Base Excess FiO2 Sodium 145 Potassium 6.5 H* 6.5 H* Chloride 120 H Carbon Dioxide 15 L BUN 97 H Creatinine 6.60 H Estimated GFR 8.1 L BUN/Creatinine Ratio 14.7 Glucose 106 Calcium 9.5 Magnesium Iron TIBC % Saturation Transferrin Ferritin Total Bilirubin AST ALT Alkaline Phosphatase Total Creatine Kinase CK-MB (CK-2) CK-MB (CK-2) Rel Index Troponin I Total Protein Albumin Globulin Albumin/Globulin Ratio Lipase Specimen Hemolysis Urine Color Urine Appearance Urine pH Ur Specific [place] Urine Protein Urine Glucose (UA) Urine Ketones Urine Occult Blood Urine Nitrate Urine Bilirubin Urine Urobilinogen Ur Leukocyte Esterase Urine RBC Urine WBC Ur Squamous Epith Cells Amorphous Sediment Urine Bacteria Ur Culture Indicated? Nasal Screen MRSA (PCR) Negative for mrsa Blood Type Antibody Screen Crossmatch 08/15/18 08/15/18 08/16/18 21:14 22:05 01:20 WBC RBC Hgb Hct MCV MCH MCHC RDW Plt Count Neut % (Auto) Lymph % (Auto) [place] % (Auto) Eos % (Auto) Baso % (Auto) Neut # (Auto) Lymph # (Auto) [place] # (Auto) Eos # (Auto) Baso # (Auto) RBC Morphology Anisocytosis PT INR APTT ABG pH 7.31 L ABG pCO2 26.1 L ABG pO2 100 ABG HCO3 13 L ABG Total CO2 14 L ABG O2 Saturation 97 ABG Base Excess -13.0 L FiO2 21 Sodium 145 Potassium 6.0 H Chloride 119 H Carbon Dioxide 16 L BUN 93 H Creatinine 6.50 H Estimated GFR 8.2 L BUN/Creatinine Ratio 14.3 Glucose 124 H Calcium 9.3 Magnesium 2.2 Iron TIBC % Saturation Transferrin Ferritin Total Bilirubin AST ALT Alkaline Phosphatase Total Creatine Kinase CK-MB (CK-2) CK-MB (CK-2) Rel Index Troponin I Total Protein Albumin Globulin Albumin/Globulin Ratio Lipase Specimen Hemolysis Urine Color Urine Appearance Urine pH Ur Specific [place] Urine Protein Urine Glucose (UA) Urine Ketones Urine Occult Blood Urine Nitrate Urine Bilirubin Urine Urobilinogen Ur Leukocyte Esterase Urine RBC Urine WBC Ur Squamous Epith Cells Amorphous Sediment Urine Bacteria Ur Culture Indicated? Nasal Screen MRSA (PCR) Blood Type Antibody Screen Crossmatch 08/16/18 08/16/18 04:55 04:55 WBC 5.9 RBC 1.91 L Hgb 6.3 L* Hct 19.0 L* MCV 99.3 MCH 32.8 MCHC 33.0 RDW 13.9 Plt Count 194 Neut % (Auto) 64.7 Lymph % (Auto) 23.6 L [place] % (Auto) 8.7 Eos % (Auto) 2.4 Baso % (Auto) 0.6 Neut # (Auto) 3800 Lymph # (Auto) 1400 [place] # (Auto) 500 Eos # (Auto) 100 Baso # (Auto) 0 RBC Morphology See below Anisocytosis 1+ H PT INR APTT ABG pH ABG pCO2 ABG pO2 ABG HCO3 ABG Total CO2 ABG O2 Saturation ABG Base Excess FiO2 Sodium 144 Potassium 5.4 H Chloride 117 H Carbon Dioxide 17 L BUN 94 H Creatinine 6.30 H Estimated GFR 8.5 L BUN/Creatinine Ratio 14.9 Glucose 119 H Calcium 9.4 Magnesium Iron TIBC % Saturation Transferrin Ferritin Total Bilirubin AST ALT Alkaline Phosphatase Total Creatine Kinase CK-MB (CK-2) CK-MB (CK-2) Rel Index Troponin I Total Protein Albumin Globulin Albumin/Globulin Ratio Lipase Specimen Hemolysis Urine Color Urine Appearance Urine pH Ur Specific [place] Urine Protein Urine Glucose (UA) Urine Ketones Urine Occult Blood Urine Nitrate Urine Bilirubin Urine Urobilinogen Ur Leukocyte Esterase Urine RBC Urine WBC Ur Squamous Epith Cells Amorphous Sediment Urine Bacteria Ur Culture Indicated? Nasal Screen MRSA (PCR) Blood Type Antibody Screen Crossmatch Assessment & Plan Assessment & Plan narrative: This is an 83-year-old male with history of hypertension, hyperlipidemia, hypothyroidism admitted due to severe renal failure and hyperkalemia as well as severe anemia. 1. Renal failure, undetermined acuity -admit BUN 109, creatinine 7.10; current BUN 94, creatinine 6.30 with IV hydration -per PCP Dr. Benjamin, patient's last renal function testing was normal around September 2017 -etiology and chronicity undetermined; postobstructive unlikely with KUB CT showing absence of hydronephrosis; patient was recently started on Mobic but took only a couple of doses then stopped and he was already feeling poorly in the preceding week, and otherwise he has not taken any NSAIDs -urinalysis with few bacteria, no excess RBC or WBC, no casts -urine output > 0.5 ml/kg/hr -non-anion gap metabolic acidosis present and patient received IV sodium bicarbonate and oral sodium bicarbonate -change IV fluid to half normal saline at 150 cc/hour, due to hyperchloremia -serum protein electrophoresis, immunoelectrophoresis and serum light chain assay are pending to rule out multiple myeloma as cause of unexplained anemia and renal failure -recheck labs at 5:00 p.m. and tomorrow a.m. -no need for urgent dialysis but patient will clearly need Nephrology follow-up 2. Hyperkalemia, severe, due to renal failure -admit potassium 7.1, current potassium 5.4 -initial treatment in ED including fluids, calcium gluconate, insulin, glucose, albuterol, Kayexalate -peaked T-wave on EKG -cardiac monitoring normal -discontinued lisinopril 3. Normocytic anemia, unknown chronicity -receiving 2 units PRBC on 08/16/2018 -admit hemoglobin 7.3, hematocrit 21.7, dropped slightly after hydration -not on aspirin or chronic NSAIDs, no reported melena or BRBPR -last colonoscopy reported 10 years ago -stool guaiac negative, iron profile and ferritin are not indicative of chronic iron deficiency -anemia severety seems out of proportion to renal failure -serum protein electrophoresis, immunoelectrophoresis, and serum light chain assay pending to rule out multiple myeloma as cause of anemia and renal failure -consider inpatient or outpatient Hematology consult -repeat H&H at 5:00 p.m. and tomorrow a.m. 4. Hypothyroidism -continue levothyroxine 175 mcg q.d. Continue inpatient management of severe renal failure, hyperkalemia and anemia. Patient's status changed to floor care. He may be stable for discharge home tomorrow with close outpatient follow-up. Quality VTE Deep Vein Thrombosis/Pulmonary Embolism Present on Admission: No
[2018-08-16] MEDS: SODIUM CHLORIDE 0.45% 1,000 ML 150 ML IV ×2 (14:12→21:18)
--- NOTE | 2018-08-16 14:33 | PC.NURSE ---
PT REPORTS NO PAIN , IS ALERT/ORIENTED AND COMPLIANT WITH ALL CARE OFFERED. HE TOOK SHOWER IN BETWEEN 2U PRBC TRANSFUSION- WHICH HE TOLERATED WELL. HE AMBULATED TO SHOWER AND ABOUT IN ROOM PERIODICALLY- HAS VOIDED POST CATHETER REMOVAL AND HAD 2 BM'S (GUAIAC -) RESTING COMFORTABLY AT PRESENT AND TOLERATING REGULAR DIET- REPEAT LABS TO BE DRAWN AT 1700
[2018-08-16 17:48] LABS: Hematocrit 27.8 % (41-53); Hemoglobin 9.4 g/dL (13.5-17.5)
[2018-08-16 18:06] LABS: BUN Creatinine Ratio 14.7 (6-22); Blood Urea Nitrogen 87 mg/dL (9-20); Calcium 9.4 mg/dL (8.4-10.2); Carbon Dioxide 17 mmol/L (22-32); Chloride 113 mmol/L (98-107); Estimated Glomerular Filt Rate 9.2 mL/min (>60); Glucose 133 mg/dL (80-110); HEMOLYSIS < 15 (0-50); Potassium 5.1 mmol/L (3.4-5.1); Sodium 144 mmol/L (137-145)
[2018-08-17] MEDS: SODIUM CHLORIDE 0.45% 1,000 ML 150 ML IV (03:52)
[2018-08-17 03:58] VITALS: BP 153/63; PULSE 46; RESP 16; TEMP 36.8; O2SAT 97
[2018-08-17 05:26] LABS: Add Manual Diff / Slide Review NO; Basophils Absolute Auto 100 /uL (0-100); Eosinophils Absolute Auto 200 /uL (0-450); Eosinophils Percent Auto 2.9 % (2-4); Hemoglobin 8.2 g/dL (13.5-17.5); Lymphocytes Absolute Auto 1400 /uL (1100-4500); Lymphocytes Percent Auto 22.6 % (25-40); Mean Corpuscular Hemoglobin 32.2 PG (26-34); Mean Corpuscular Volume 94.7 fL (80-100); Monocytes Absolute Auto 500 /uL (0-900); Monocytes Percent Auto 8.5 % (3-14); Neutrophils Absolute Auto 4000 /uL (1500-7000); Platelet Count 178 X10^3/uL (150-400); Red Blood Cell Count 2.56 X10^6/uL (4.5-5.9); Red Cell Distribution Width 15.2 % (11.6-14.8); White Blood Cell Count 6.1 X10^3/uL (4.5-11.0)
[2018-08-17 05:27] LABS: BUN Creatinine Ratio 14.8 (6-22); Blood Urea Nitrogen 86 mg/dL (9-20); Calcium 9.1 mg/dL (8.4-10.2); Carbon Dioxide 17 mmol/L (22-32); Chloride 115 mmol/L (98-107); Estimated Glomerular Filt Rate 9.4 mL/min (>60); Glucose 95 mg/dL (80-110); HEMOLYSIS < 15 (0-50); Sodium 142 mmol/L (137-145)
[2018-08-17 05:29] LABS: Potassium 5.1 mmol/L (3.4-5.1)
[2018-08-17 05:30] LABS: Hematocrit 24.2 % (41-53)
[2018-08-17 07:00] VITALS: O2SAT 95
[2018-08-17 07:56] VITALS: BP 148/58; PULSE 59; RESP 16; TEMP 36.6; O2SAT 98
[2018-08-17] MEDS: LEVOTHYROXINE 75 MCG TABLET PO (08:43)
[2018-08-17] MEDS: LEVOTHYROXINE 100 MCG TABLET PO (08:43)
--- NOTE | 2018-08-17 08:53 | PM.PN.1 ---
Subjective Date Patient Seen: 08/17/18 Time Patient Seen: 08:53 Exam Vital Signs (past 8 hours): - 08/17/18 03:58 08/17/18 07:56 Temperature 98.2 F 97.9 F Pulse Rate 46 L 59 L Respiratory Rate 16 16 Blood Pressure 153/63 H 148/58 H Pulse Oximetry 97 98 Oxygen Delivery Method Room Air Oxygen Flow Rate 0 Objective Labs Result Diagrams: 08/17/18 05:02 08/17/18 05:02 Labs: Laboratory Results - last 24 hr 08/15/18 08/16/18 08/16/18 15:42 17:00 17:00 WBC RBC Hgb 9.4 L Hct 27.8 L MCV MCH MCHC RDW Plt Count Neut % (Auto) Lymph % (Auto) [place] % (Auto) Eos % (Auto) Baso % (Auto) Neut # (Auto) Lymph # (Auto) [place] # (Auto) Eos # (Auto) Baso # (Auto) Sodium 144 Potassium 5.1 Chloride 113 H Carbon Dioxide 17 L BUN 87 H Creatinine 5.90 H Estimated GFR 9.2 L BUN/Creatinine Ratio 14.7 Glucose 133 H Calcium 9.4 Blood Type A Positive Antibody Screen Negative Crossmatch See Detail 08/17/18 08/17/18 05:02 05:02 WBC 6.1 RBC 2.56 L Hgb 8.2 L Hct 24.2 L MCV 94.7 D MCH 32.2 MCHC 34.0 RDW 15.2 H Plt Count 178 Neut % (Auto) 65.0 Lymph % (Auto) 22.6 L [place] % (Auto) 8.5 Eos % (Auto) 2.9 Baso % (Auto) 1.0 Neut # (Auto) 4000 Lymph # (Auto) 1400 [place] # (Auto) 500 Eos # (Auto) 200 Baso # (Auto) 100 Sodium 142 Potassium 5.1 Chloride 115 H Carbon Dioxide 17 L BUN 86 H Creatinine 5.80 H Estimated GFR 9.4 L BUN/Creatinine Ratio 14.8 Glucose 95 Calcium 9.1 Blood Type Antibody Screen Crossmatch Assessment & Plan Assessment & Plan narrative: This is an 83-year-old male with history of hypertension, hyperlipidemia, hypothyroidism admitted due to severe renal failure and hyperkalemia as well as severe anemia. 1. Renal failure, undetermined acuity -admit BUN 109, creatinine 7.10; current BUN 94, creatinine 6.30 with IV hydration -per PCP Dr. Benjamin, patient's last renal function testing was normal around September 2017 -etiology and chronicity undetermined; postobstructive unlikely with KUB CT showing absence of hydronephrosis; patient was recently started on Mobic but took only a couple of doses then stopped and he was already feeling poorly in the preceding week, and otherwise he has not taken any NSAIDs -urinalysis with few bacteria, no excess RBC or WBC, no casts -urine output > 0.5 ml/kg/hr -non-anion gap metabolic acidosis present and patient received IV sodium bicarbonate and oral sodium bicarbonate -change IV fluid to half normal saline at 150 cc/hour, due to hyperchloremia -serum protein electrophoresis, immunoelectrophoresis and serum light chain assay are pending to rule out multiple myeloma as cause of unexplained anemia and renal failure -recheck labs at 5:00 p.m. and tomorrow a.m. -no need for urgent dialysis but patient will clearly need Nephrology follow-up 2. Hyperkalemia, severe, due to renal failure -admit potassium 7.1, current potassium 5.4 -initial treatment in ED including fluids, calcium gluconate, insulin, glucose, albuterol, Kayexalate -peaked T-wave on EKG -cardiac monitoring normal -discontinued lisinopril 3. Normocytic anemia, unknown chronicity -receiving 2 units PRBC on 08/16/2018 -admit hemoglobin 7.3, hematocrit 21.7, dropped slightly after hydration -not on aspirin or chronic NSAIDs, no reported melena or BRBPR -last colonoscopy reported 10 years ago -stool guaiac negative, iron profile and ferritin are not indicative of chronic iron deficiency -anemia severety seems out of proportion to renal failure -serum protein electrophoresis, immunoelectrophoresis, and serum light chain assay pending to rule out multiple myeloma as cause of anemia and renal failure -consider inpatient or outpatient Hematology consult -repeat H&H at 5:00 p.m. and tomorrow a.m. 4. Hypothyroidism -continue levothyroxine 175 mcg q.d. Quality VTE Deep Vein Thrombosis/Pulmonary Embolism Present on Admission: No
--- NOTE | 2018-08-17 09:23 | P.DS_ITS ---
History of Present Illness Date Patient Seen: 08/17/18 Time Patient Seen: 10:33 Chief complaint: states his potasium levels are high Narrative: Patient is an 83-year-old male with history of hypertension, hyperlipidemia, hypothyroidism sent to the ER by his PCP Dr. Benjamin due to concerning labs. Outpatient blood work showed new renal failure with creatinine 6.0, BUN 100 and acute hyperkalemia with potassium 6.3. Blood work in the ER showed creatinine 7.10 109, potassium 7.1. Baseline BUN is 21 and creatinine 1.1 on 01/17/2017. Patient received initial treatment in ER consisting of calcium gluconate, albuterol, insulin and glucose, and Kayexalate. He also received initial 2 L IV fluid. A repeat serum potassium is pending. EKG showed peaked T-wave in lead V3 but otherwise unremarkable. CT KUB noncontrast did not show hydronephrosis and both kidneys were noted normal in size and echogenicity. He has nonsignificant right kidney small cysts and bladder diverticulum. Patient also noted to be severely anemic with hemoglobin 7.3 and hematocrit 21.7 on ER labs. Patient has not been feeling well for about a week. He reports diminished appetite with decreased intake of food and water as well as awful taste in his mouth. He has had pain across his upper abdomen for a while now. He reports 5 lb weight loss in the past month and 10 lb weight loss in the past year. His last colonoscopy was about 10 years ago. He denies nausea, vomiting, diarrhea, melena or bright red blood. He reports frequent urination in small amounts but has not noticed drop in urine volume. He was started on Mobic last week due to complaints of nonacute pain in his shoulder and legs although other symptoms started prior to the Mobic. His other medications which are lisinopril, lovas tatin and levothyroxine are not new to him. He denies chest pain, dyspnea. He has history of aortic stenosis, denies CAD. He has family history of CA Discharge Providers Date of admission: 08/15/18 15:45 Discharge Date: 08/17/18 Primary care physician: Jay Benjamin MD Discharge provider: Marleni Wang MD Summary Discharge Diagnosis: 1. Renal failure, undetermined 2. Hyperkalemia 3. Normocytic anemia, unknown chronicity 4. Hypothyroidism Hospital Course: 1. Renal failure, undetermined acuity -admit BUN 109, creatinine 7.10; current BUN 86, creatinine 5.8 with IV hydration -per PCP Dr. Benjamin, patient's last renal function testing was normal around September 2017 -etiology and chronicity undetermined; postobstructive unlikely with KUB CT showing absence of hydronephrosis; patient was recently started on Mobic but took only a couple of doses then stopped and he was already feeling poorly in the preceding week, and otherwise he has not taken any NSAIDs -urinalysis with few bacteria, no excess RBC or WBC, no casts -urine output > 0.5 ml/kg/hr, 300 ml in the last 4 hours. -non-anion gap metabolic acidosis present and patient received IV sodium bicarbonate and oral sodium bicarbonate -serum protein electrophoresis, immunoelectrophoresis and serum light chain assay are pending to rule out multiple myeloma as cause of unexplained anemia and renal failure -no need for urgent dialysis but patient will clearly need Nephrology follow-up, discussed with Dr. Hannon who will see him next week. 2. Hyperkalemia, severe, due to renal failure -admit potassium 7.1, current potassium 5.1 -initial treatment in ED including fluids, calcium gluconate, insulin, glucose, albuterol, Kayexalate -peaked T-wave on EKG -cardiac monitoring normal -discontinued lisinopril 3. Normocytic anemia, unknown chronicity -received 2 units PRBC on 08/16/2018/ Hgb 8.2 today. -admit hemoglobin 7.3, hematocrit 21.7, dropped slightly after hydration -not on aspirin or chronic NSAIDs, no reported melena or BRBPR -last colonoscopy reported 10 years ago -stool guaiac negative, iron profile and ferritin are not indicative of chronic iron deficiency -anemia severety seems out of proportion to renal failure -serum protein electrophoresis, immunoelectrophoresis, and serum light chain assay pending to rule out multiple myeloma as cause of anemia and renal failure -Follow up with Dr. Benjamin for repeat testing in 3 days and then with Nephrology - Dr. Hannon, potentially also with Oncology. 4. Hypothyroidism -continue levothyroxine 175 mcg q.d. Total time of 35 minutes today. Exam Vital Signs (past 8 hours): - 08/17/18 03:58 08/17/18 07:00 08/17/18 07:56 Temperature 98.2 F 97.9 F Pulse Rate 46 L 59 L Respiratory Rate 16 16 Blood Pressure 153/63 H 148/58 H Pulse Oximetry 97 95 98 Oxygen Delivery Method Room Air Oxygen Flow Rate 0 Objective Labs Result Diagrams: 08/17/18 05:02 08/17/18 05:02 Labs: Laboratory Results - last 24 hr 08/15/18 08/16/18 08/16/18 15:42 17:00 17:00 WBC RBC Hgb 9.4 L Hct 27.8 L MCV MCH MCHC RDW Plt Count Neut % (Auto) Lymph % (Auto) [place] % (Auto) Eos % (Auto) Baso % (Auto) Neut # (Auto) Lymph # (Auto) [place] # (Auto) Eos # (Auto) Baso # (Auto) Sodium 144 Potassium 5.1 Chloride 113 H Carbon Dioxide 17 L BUN 87 H Creatinine 5.90 H Estimated GFR 9.2 L BUN/Creatinine Ratio 14.7 Glucose 133 H Calcium 9.4 Blood Type A Positive Antibody Screen Negative Crossmatch See Detail 08/17/18 08/17/18 05:02 05:02 WBC 6.1 RBC 2.56 L Hgb 8.2 L Hct 24.2 L MCV 94.7 D MCH 32.2 MCHC 34.0 RDW 15.2 H Plt Count 178 Neut % (Auto) 65.0 Lymph % (Auto) 22.6 L [place] % (Auto) 8.5 Eos % (Auto) 2.9 Baso % (Auto) 1.0 Neut # (Auto) 4000 Lymph # (Auto) 1400 [place] # (Auto) 500 Eos # (Auto) 200 Baso # (Auto) 100 Sodium 142 Potassium 5.1 Chloride 115 H Carbon Dioxide 17 L BUN 86 H Creatinine 5.80 H Estimated GFR 9.4 L BUN/Creatinine Ratio 14.8 Glucose 95 Calcium 9.1 Blood Type Antibody Screen Crossmatch Discharge Plan Discharge Plan Patient Disposition: Home Discharge comment: Follow up with Dr. Benjamin for lab testing on Monday Make appointment with Dr. Hannon, the engineering laboratory technician in [place] at [facility] in one week. Discharge Med Rec/Prescriptions Prescriptions: Continued levothyroxine 175 mcg tablet 175 mcg PO DAILY RF: 0 lovastatin 40 mg Tablet 40 mg PO QPM RF: 0 Discontinued lisinopril 5 mg Tablet 5 mg PO DAILY RF: 0 Follow up/Referrals: Jay Benjamin MD [Primary Care Provider] - Provider Discharge Instructions Diet: Diet as Tolerated Visit Report/Discharge Packet Instructions: Acute Renal Failure, DI for Hyperkalemia, Hyperkalemia Discharge Data Primary Care Provider: Jay Benjamin Attending Provider: Anatoliy Yee Admit Date/Time: 08/15/18 15:45 Discharges patient from system. Discharge Date/Time: 08/17/18 10:45 Quality VTE Deep Vein Thrombosis/Pulmonary Embolism Present on Admission: No
--- NOTE | 2018-08-17 10:42 | CM.DANOTE ---
Discharged awake, alert, oriented. NAD. VSS. PIVs d/c'd. Discharge instructions reviewed with pt. All personal effects with patient.
--- NOTE | 2018-08-17 13:00 | CM.DPC ---
DCP: continued: case received, EMR reviewed and d/c to home order noted. RN Crow's nursing notes show that pt did d/c home this morning as per plan.
[2018-08-18 14:10] LABS: Free Kappa Light Chain 15.7 mg/L (3.3-19.4); Free Kappa/ Lambda Ratio < 0.01 (0.26-1.65); Free Lambda 33331.3 mg/L (5.7-26.3)
[2018-08-22 00:35] LABS: Abnormal Protein Band 1 0.9 g/dL (NONE DETECTED); Albumin 3.3 g/dL (3.8-4.8); Alpha 1 Globulin 0.3 g/dL (0.2-0.3); Alpha 2 Globulin 0.6 g/dL (0.5-0.9); Beta 1 Globulin 0.5 g/dL (0.4-0.6); Gamma Globulin 0.4 g/dL (0.8-1.7); Protein, Total 6.2 g/dL (6.1-8.1)
== END 2018-08-17 10:45 | disposition home or self-care (01) | DRG 683 ==
LOC: ED 15:24 → ICU 16:23
PROVIDERS: Nurse Practitioner Adult Health; Nurse Practitioner Family; Admitting Provider Internal Medicine; Emergency Provider Emergency Medicine; Family Provider Internal Medicine; PCP Internal Medicine; Visit Provider Internal Medicine
DX: N19 Unspecified kidney failure (principal); E87.2 Acidosis; E87.5 Hyperkalemia; D64.9 Anemia, unspecified; Z87.891 Personal history of nicotine dependence; E03.9 Hypothyroidism, unspecified
CPT/HCPCS: 36415; 36430; 36600; 51701; 74176; 80048; 80053; 81001; 82550; 82728; 82784; 82805; 83540; 83550; 83690; 83735; 83883; 84132; 84155; 84165; 84484; 85014; 85018; 85025; 85610; 85730; 86334; 86850; 86900; 86901; 87797; 93005; 96361; 96365; 96366; 96375; 99285; P9016; J0610; J7050; J7613

== ENCOUNTER → 2018-08-28 08:49 | Outpatient (CLI) | payer MEDICARE, OTHER, SELFPAY ==
[2018-08-15 16:34] VITALS: BMI 25.4
[2018-08-28 09:56] LABS: Albumin 4.4 g/dL (3.5-5.0); Blood Urea Nitrogen 80 mg/dL (9-20); Carbon Dioxide 18 mmol/L (22-32); Chloride 105 mmol/L (98-107); Estimated Glomerular Filt Rate 9.6 mL/min (>60); Glucose 107 mg/dL (80-110); HEMOLYSIS < 15 (0-50); Phosphorous 6.9 mg/dL (2.3-3.7); Sodium 138 mmol/L (137-145)
[2018-08-28 10:08] LABS: Potassium 5.6 mmol/L (3.4-5.1)
[2018-08-30 15:08] LABS: Complement C3 122 mg/dL
[2018-08-30 18:48] LABS: ANA Screen, IFA Negative (Negative)
[2018-09-01 19:53] LABS: ANCA Screen Positive (Negative); P-ANCA Titer 1:40 titer (<1:20)
== END ==
PROVIDERS: PCP Internal Medicine; Visit Provider Internal Medicine Nephrology
DX: N17.9 Acute kidney failure, unspecified (principal)
CPT/HCPCS: 36415; 80069; 83520; 86021; 86038; 86160

== ENCOUNTER 2018-11-10 09:37 | Observation (INO) | payer MEDICARE, OTHER, SELFPAY ==
[2018-08-15 16:34] VITALS: BMI 25.4
[2018-11-10] VITALS (7 sets, daily range): BP systolic 102–161; BP diastolic 64–81; PULSE 64–99; RESP 13–22; TEMP 36.6–37; O2SAT 94–99; BMI 25.5; BMI 24.5
--- NOTE | 2018-11-10 09:38 | ED.OVERDOSE ---
HPI - Overdose General Chief Complaint: Toxicology Problem Stated Complaint: accidental overdose Time Seen by Provider: 11/10/18 09:46 Source: patient and EMS Mode of arrival: EMS Limitations: no limitations History of Present Illness HPI Narrative: Patient is a 83 year old male who presents after an accidental overdose of amlodipine. 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 He clearly just moved yesterday the bottles were flipped. He accidentally took 10 tablets of 2.5 mg of amlodipine at 8:45 a.m. in the morning. He immediately called his doctor told him to call 911. EMS arrived 30 minutes after his ingestion and he was immediately given charcoal. He has no complaints. Poison Control was contacted from the field and again by myself in the emergency department. Amlodipine is long-acting currently recommending monitoring him for 12 hours. Because he takes a daily they do not suspect him to have multiple complications he also got charcoal which should help. MD complaint: accidental overdose Onset (ago): minute(s) Related Data Home Medications Medication Instructions Recorded Confirmed levothyroxine 175 mcg PO DAILY 08/15/18 11/10/18 lovastatin 40 mg PO QPM 08/15/18 11/10/18 acetaminophen [Tylenol] 650 mg PO BIDAC 11/10/18 11/10/18 amlodipine 2.5 mg PO DAILY 11/10/18 11/10/18 dexamethasone 40 mg PO QWEEK 11/10/18 11/10/18 Allergies Allergy/AdvReac Type Severity Reaction Status Date / Time codeine Allergy Unknown Verified 08/15/18 13:43 Penicillins Allergy Verified 08/15/18 13:10 Review of Systems Review of Systems Narrative: GENERAL: Denies chills, fatigue, malaise, fever, sweats, travel HEENT: Denies sinus pain, ear pain, sore throat, difficulty swallowing, neck pain RESPIRATORY: Denies dyspnea, cough, wheezing, hemoptysis, sputum. CARDIOVASCULAR: Denies chest pain, palpitations, orthopnea, edema GASTROINTESTINAL: Denies nausea, vomiting, abdominal pain, diarrhea, constipation, melena. : Denies dysuria, frequency, incontinence, hematuria, urinary retention, flank pain. MUSCULOSKELETAL: Denies weakness, joint pain, or bony pain SKIN: No rash, no erythema, no pruritus NEUROLOGIC: Denies weakness, dizziness, headache, numbness, change in speech, confusion PSYCHIATRIC: No concerning psychosocial issues. 12 point review of systems is negative except for those stated above and HPI [facility] Medical History (Updated 11/10/18 @ 12:42 by Curtis Silva, JENNIFER) Aortic stenosis (Acute) Hemodialysis patient (Acute) History of chemotherapy (Acute) Hyperlipidemia (Acute) Hypertension (Acute) Hypothyroidism (Acute) Multiple myeloma (Acute) Surgical History (Updated 11/10/18 @ 12:44 by Curtis Silva RN) History of tonsillectomy (Acute) S/P right rotator cuff repair (Acute) Social History household members: spouse Smoking Status: Former smoker alcohol intake: current substance use type: does not use Social History household members: spouse Smoking Status: Former smoker alcohol intake: current substance use type: does not use Exam Initial Vital Signs Initial Vital Signs: Vital Signs Temperature 98.2 F 11/10/18 09:29 Pulse Rate 69 11/10/18 09:29 Respiratory Rate 17 11/10/18 09:29 Blood Pressure 161/71 H 11/10/18 09:29 Pulse Oximetry 99 11/10/18 09:29 GENERAL: Alert well-appearing elderly and in no acute distress. HEENT: Head atraumatic,EOMI, pupils reactive, face symmetric, CARDIOVASCULAR: Regular rate and rhythm without murmurs, rubs or gallops. Catheter noted in right chest RESPIRATORY: Breath sounds equal bilaterally, no wheezes rales or rhonchi. ABDOMEN: Soft, nontender. Normoactive bowel sounds all 4 quadrants. No guarding or rebound. EXTREMITIES: Normal range of motion, no clubbing or edema. Neurovascularly intact NEUROLOGICAL: Alert and oriented x4.Normal gait and speech. Cranial nerves II through XII grossly intact. SKIN: Warm, dry, no laceration, no petechiae, no rashes or lesions. Course Orders Ordered: ED Orders 11/10/18 09:15 Acetaminophen Stat Complete Blood Count AUTO DIFF Stat Comprehensive Metabolic Panel Stat Ethanol (ETOH) Stat Salicylate Stat Troponin & CK Cardiac Panel Stat 11/10/18 09:24 EKG-12 Lead Routine 11/10/18 12:00 Urine Drug Screen, Rapid Stat Sodium Chloride (Normal Saline 0.9%) 1,000 mls @ 150 mls/hr IV CONT LEILANI Last Admin: 11/10/18 10:19 Dose: 150 mls/hr Documented by: JADE Vital Signs Vital signs: Vital Signs - 8 hr 11/10/18 09:29 11/10/18 10:00 11/10/18 10:30 Temperature 98.2 F Pulse Rate 69 99 H 65 Respiratory Rate 17 15 14 Blood Pressure 161/71 H Blood Pressure [Right Arm] 102/81 145/66 H Pulse Oximetry 99 96 96 11/10/18 11:02 Temperature Pulse Rate 64 Respiratory Rate 13 Blood Pressure Blood Pressure [Right Arm] 151/64 H Pulse Oximetry 97 MDM - Overdose Lab Data Attestation: I reviewed the patient's lab results. Result diagrams: 11/10/18 09:15 11/10/18 09:15 Labs: Lab Results 11/10/18 11/10/18 Range/Units 09:15 09:15 WBC 3.3 L (4.5-11.0) X10^3/uL RBC 2.62 L (4.5-5.9) X10^6/uL Hgb 7.9 L (13.5-17.5) g/dL Hct 23.4 L (41-53) % MCV 89.3 (80-100) fL MCH 30.2 (26-34) PG MCHC 33.8 (30-36) % RDW 17.0 H (11.6-14.8) % Plt Count 237 (150-400) X10^3/uL Neut % (Auto) 73.0 (50-75) % Lymph % (Auto) 16.0 L (25-40) % [place] % (Auto) 7.1 (3-14) % Eos % (Auto) 3.2 (2-4) % Baso % (Auto) 0.7 (0-2) % Neut # (Auto) 2400 (6208-1106) /uL Lymph # (Auto) 500 L (5157-9807) /uL [place] # (Auto) 200 (0-900) /uL Eos # (Auto) 100 (0-450) /uL Baso # (Auto) 0 (0-100) /uL Sodium 137 (137-145) mmol/L Potassium 4.3 (3.4-5.1) mmol/L Chloride 96 L (98-107) mmol/L Carbon Dioxide 31 (22-32) mmol/L BUN 26 H (9-20) mg/dL Creatinine 3.30 H (0.66-1.25) mg/dL Estimated GFR 18.0 L (>60) mL/min BUN/Creatinine Ratio 7.9 (6-22) Glucose 135 H (80-110) mg/dL Calcium 9.0 (8.4-10.2) mg/dL Total Bilirubin 0.6 (0.2-1.3) mg/dL AST 22 (17-59) IU/L ALT 19 L (21-72) IU/L Alkaline Phosphatase 90 (38-126) U/L Total Creatine Kinase 41 L (55-170) U/L CK-MB (CK-2) TNP CK-MB (CK-2) Rel Index TNP Troponin I 0.028 (0.01-0.034) ng/mL Total Protein 6.4 (6.3-8.2) g/dL Albumin 3.7 (3.5-5.0) g/dL Globulin 2.7 (1.7-4.1) g/dL Albumin/Globulin Ratio 1.4 (1.0-2.8) Salicylates < 1.0 (<20) mg/dL Acetaminophen < 10 L (10-30) ug/mL Ethyl Alcohol < 10 ( - 10) mg/dL MDM Narrative Medical decision making narrative: Patient he is on dialysis he was supposed to have today at 1:45 a.m. it has already been rescheduled. He goes Monday sometimes gets it Monday. The patient is hemodynamically stable. Needs to be monitored for at least 12 hours. He has no complaints. Dr. wu updated on patient's symptoms and test results agrees with observation Discharge Plan Departure Patient Disposition: Admitted as Observation Clinical Impression: Calcium channel juliann overdose Qualifiers: Encounter type: initial encounter Injury intent: accidental or unintentional Qualified Code(s): T46.1X1A - Poisoning by calcium-channel blockers, accidental (unintentional), initial encounter Discharge Date/Time: 11/10/18 11:59 Referrals: Jay Benjamin MD [Primary Care Provider] - Admit Date/Time: 11/10/18 11:53 Admit Provider: Loly Wu
[2018-11-10 09:42] LABS: Add Manual Diff / Slide Review NO; Basophils Absolute Auto 0 /uL (0-100); Basophils Percent Auto 0.7 % (0-2); Eosinophils Absolute Auto 100 /uL (0-450); Eosinophils Percent Auto 3.2 % (2-4); Hemoglobin 7.9 g/dL (13.5-17.5); Lymphocytes Absolute Auto 500 /uL (1100-4500); Mean Corpuscular HGB Conc 33.8 % (30-36); Mean Corpuscular Hemoglobin 30.2 PG (26-34); Mean Corpuscular Volume 89.3 fL (80-100); Monocytes Absolute Auto 200 /uL (0-900); Monocytes Percent Auto 7.1 % (3-14); Neutrophils Absolute Auto 2400 /uL (1500-7000); Platelet Count 237 X10^3/uL (150-400); Red Blood Cell Count 2.62 X10^6/uL (4.5-5.9); White Blood Cell Count 3.3 X10^3/uL (4.5-11.0)
[2018-11-10 09:45] LABS: Hematocrit 23.4 % (41-53)
[2018-11-10 09:48] LABS: Acetaminophen < 10 ug/mL (10-30); Alanine Aminotransferase 19 IU/L (21-72); Albumin 3.7 g/dL (3.5-5.0); Albumin Globulin Ratio 1.4 (1.0-2.8); Alkaline Phosphatase 90 U/L (38-126); Aspartate Aminotransferase 22 IU/L (17-59); BUN Creatinine Ratio 7.9 (6-22); Bilirubin Total 0.6 mg/dL (0.2-1.3); Blood Urea Nitrogen 26 mg/dL (9-20); Carbon Dioxide 31 mmol/L (22-32); Chloride 96 mmol/L (98-107); Creatine Kinase 41 U/L (55-170); Ethanol (ETOH) < 10 mg/dL; Globulin 2.7 g/dL (1.7-4.1); Glucose 135 mg/dL (80-110); HEMOLYSIS < 15 (0-50); Potassium 4.3 mmol/L (3.4-5.1); Salicylate < 1.0 mg/dL (<20); Sodium 137 mmol/L (137-145); Total Protein 6.4 g/dL (6.3-8.2)
[2018-11-10 09:59] LABS: Troponin I 0.028 ng/mL (0.01-0.034)
[2018-11-10] MEDS: SODIUM CHLORIDE 0.9% 1,000 ML 150 ML IV (10:19)
[2018-11-10 12:26] LABS: UR Morphine/Opiate cutoff 300 Negative (Negative); Ur Creatinine Normal (Normal); Ur Specific Gravity Normal (Normal); Urine Amphetamines Negative (Negative); Urine Barbiturates Negative (Negative); Urine Benzodiazepines Negative (Negative); Urine Cocaine Negative (Negative); Urine MDMA Negative (Negative); Urine Methadone Negative (Negative); Urine Methamphetamines Negative (Negative); Urine Oxycodone Negative (Negative); Urine Phencyclidine Negative (Negative); Urine Tetrahydrocannabinol Negative (Negative); Urine Tricyclic Antidepressant Negative (Negative); Urine pH Normal (Normal)
--- NOTE | 2018-11-10 14:54 | PC.ADMIT ---
[address] Admission Note: The patient,Brad Benoit,83 y/o, was given written information regarding hospital policies, unit procedures and contact persons. Patient's smoking status: Former smoker. Vital Signs - 8 hr 11/10/18 09:29 11/10/18 10:00 11/10/18 10:30 Temperature 98.2 F Pulse Rate 69 99 H 65 Respiratory Rate 17 15 14 Blood Pressure 161/71 H Blood Pressure [Right Arm] 102/81 145/66 H Pulse Oximetry 99 96 96 11/10/18 11:02 11/10/18 13:12 Temperature 97.8 F Pulse Rate 64 65 Respiratory Rate 13 14 Blood Pressure 150/65 H Blood Pressure [Right Arm] 151/64 H Pulse Oximetry 97 95 Rec'd pt from ED to room 105 at 1200. Pt is AO x3. Stood and ambulated to the BR and then the bed with steady gait. Pt able to void per urinal. Urine sent to lab per order. Admission assessment completed. Daughter and son at bedside. Oriented to unit, routine, plan of care. Educated to fall risk and educated to use of call light and to wait for assistance. He verbalizes understanding. Will monitor.
--- NOTE | 2018-11-10 15:32 | P.HP_ITS ---
History of Present Illness History of Present Illness Date Patient Seen: 11/10/18 Chief complaint: accidental overdose Narrative: Brad Benoit is an 83-year-old male with a past medical history significant for hypertension, hyperlipidemia, hypothyroidism and recently diagnosed multiple m yeloma and end-stage renal disease on chemotherapy and dialysis who presented to the ED after accidentally taking the wrong medication. The patient reports that he just moved in to [facility] on the [facility] and his medications were not in their usual place. He believes he took 10 tablets of 2.5 mg amlodipine rather than 10 tablets of 4 mg dexamethasone. The patient was recently diagnosed with multiple myeloma due to acute renal failure and is followed by Dr. Moore and has completed 2 cycles of chemotherapy with Velcade and Cytoxan. Per the patient's oncologist, he receives chemotherapy on Monday and with dexamethasone on Saturdays, as well as, hemodialysis Monday, Monday, and Monday. The patient reports various scheduling conflicts and constant rescheduling, therefore, it is difficult for him to keep track of his chemotherapy and hemodialysis schedule. The patient brought both bottles of amlodipine and dexamethasone into the hospital for which no tablets are missing from the dexamethasone (quantity #40 filled on 11/06) and 15 tablets are missing of amlodipine which would be anticipated if he takes 1 tablet a day (filled on 10/25). It is unclear what medication the patient took. The patient has no signs or symptoms of amlodipine overdose. His vital signs are all stable and he is slightly hypertensive. He denies headache, chest pain, shortness of breath, lightheadedness or dizziness, vision changes, tinnitus, abdominal pain, nausea, or vomiting. The patient is urinating and eliminating without difficulty. He has no complaints overall. The patient called 911 and received activated charcoal en route via EMS. Poison Control was contacted by the ED provider and an algorithm provided for treatment. The patient was admitted for close hemodynamic observation. Of note, the patient has a pruritic maculopapular rash on the right side of the back of his neck, upper back, and upper chest that started yesterday. Patient believes his rash may be due to a chair he has been sitting in recently which no longer has a cover on it. The rash does not appear to be a drug rash and his oncologist does not believe this is related to chemotherapy. Patient History Medical History Aortic stenosis (Acute) Hemodialysis patient (Acute) History of chemotherapy (Acute) Hyperlipidemia (Acute) Hypertension (Acute) Hypothyroidism (Acute) Multiple myeloma (Acute) Surgical History History of tonsillectomy (Acute) S/P right rotator cuff repair (Acute) Social History household members: spouse Smoking Status: Former smoker alcohol intake: current substance use type: does not use Family & Social History Family History (Updated 11/10/18 @ 16:09 by Loly Maher DO) Father Rheumatic fever with cardiac involvement Heart disease Typhoid fever Mother Parkinsons disease Dementia Brother No problems noted. Brother Heart disease Social History: household members spouse Prior Living Arrangements Half-Way Facility Safety & Behavioral: Feels Safe in Current Yes Environment Been Physically Hurt or No Threatened By a Person Suicidal Ideation Description None Suicide Plan Description No Plan Tobacco & Substance use: Smoking Status Former smoker alcohol intake current alcohol intake frequency holiday/special occasion Substance Use Type does not use Meds Home Medications and Allergies Home Medications Medication Instructions Recorded Confirmed Type levothyroxine 175 mcg PO DAILY 08/15/18 11/10/18 History lovastatin 40 mg PO QPM 08/15/18 11/10/18 History acetaminophen [Tylenol] 650 mg PO BIDAC 11/10/18 11/10/18 History amlodipine 2.5 mg PO DAILY 11/10/18 11/10/18 History dexamethasone 40 mg PO QWEEK 11/10/18 11/10/18 History Allergies Allergy/AdvReac Type Severity Reaction Status Date / Time codeine Allergy Unknown Verified 08/15/18 13:43 Penicillins Allergy Verified 08/15/18 13:10 Review of Systems Review of Systems Narrative: A 10 system comprehensive review of systems was conducted with the patient and found to be negative except as above in the History of Present Illness. Exam Vital Signs (past 8 hours): - 11/10/18 09:29 11/10/18 10:00 11/10/18 10:30 Temperature 98.2 F Pulse Rate 69 99 H 65 Respiratory Rate 17 15 14 Blood Pressure 161/71 H Blood Pressure [Right Arm] 102/81 145/66 H Pulse Oximetry 99 96 96 11/10/18 11:02 11/10/18 13:12 Temperature 97.8 F Pulse Rate 64 65 Respiratory Rate 13 14 Blood Pressure 150/65 H Blood Pressure [Right Arm] 151/64 H Pulse Oximetry 97 95 Oxygen Delivery Method Room Air Narrative Exam Narrative: General: Elderly male lying in bed and in no acute distress, well-developed, well-nourished, appropriately interactive. HEENT: Normocephalic, atraumatic. External ears without defect. Pupils equal, round, and reactive to light. Anicteric sclerae, moist conjunctivae, and no lid lag. Oropharynx free of erythema and cobble stoning with moist mucosa. Neck: Supple with full range of motion. No jugular venous distension. No bruits. No lymphadenopathy or thyromegaly. Cardiovascular: Regular rate and rhythm with holosystolic murmur grade 2/6 radiating to carotids bilaterally. No rubs or gallops appreciated. Temporary dialysis catheter on right chest. Pulmonary: Clear to auscultation bilaterally without crackles, wheezes, or rhonchi. Normal respiratory effort with no use of accessory muscles. Abdomen: Soft, bowel sounds present, nontender, nondistended. No hepatosplenomegaly or masses appreciated. Extremities: No clubbing, cyanosis, or edema. Skin: Normal temperature, turgor, and texture; no ulcers, or subcutaneous nodules appreciated. Maculopapular pruritic rash on left side of the back of neck, upper back, and upper chest. Neurological: Cranial nerves grossly intact. Psychiatric: Normal mood and affect. Alert and oriented to person, place, and time. Objective Labs Result Diagrams: 11/10/18 09:15 11/10/18 09:15 Labs: Laboratory Results - last 24 hr 11/10/18 11/10/18 11/10/18 09:15 09:15 12:00 WBC 3.3 L RBC 2.62 L Hgb 7.9 L Hct 23.4 L MCV 89.3 MCH 30.2 MCHC 33.8 RDW 17.0 H Plt Count 237 Neut % (Auto) 73.0 Lymph % (Auto) 16.0 L [place] % (Auto) 7.1 Eos % (Auto) 3.2 Baso % (Auto) 0.7 Neut # (Auto) 2400 Lymph # (Auto) 500 L [place] # (Auto) 200 Eos # (Auto) 100 Baso # (Auto) 0 Sodium 137 Potassium 4.3 Chloride 96 L Carbon Dioxide 31 BUN 26 H Creatinine 3.30 H Estimated GFR 18.0 L BUN/Creatinine Ratio 7.9 Glucose 135 H Calcium 9.0 Total Bilirubin 0.6 AST 22 ALT 19 L Alkaline Phosphatase 90 Total Creatine Kinase 41 L CK-MB (CK-2) TNP CK-MB (CK-2) Rel Index TNP Troponin I 0.028 Total Protein 6.4 Albumin 3.7 Globulin 2.7 Albumin/Globulin Ratio 1.4 Nasal Screen MRSA (PCR) Negative for mrsa Salicylates < 1.0 U Morph 300 ng/mL cutoff Ur Oxycodone Screen Urine Methadone Screen Acetaminophen < 10 L Ur Barbiturates Screen U Tricyclic Antidepress Ur Phencyclidine Scrn Ur Amphetamines Screen U Methamphetamines Scrn Ur MDMA Scrn (Ecstasy) U Benzodiazepines Scrn Urine Cocaine Screen U Marijuana (THC) Screen Ethyl Alcohol < 10 11/10/18 12:00 WBC RBC Hgb Hct MCV MCH MCHC RDW Plt Count Neut % (Auto) Lymph % (Auto) [place] % (Auto) Eos % (Auto) Baso % (Auto) Neut # (Auto) Lymph # (Auto) [place] # (Auto) Eos # (Auto) Baso # (Auto) Sodium Potassium Chloride Carbon Dioxide BUN Creatinine Estimated GFR BUN/Creatinine Ratio Glucose Calcium Total Bilirubin AST ALT Alkaline Phosphatase Total Creatine Kinase CK-MB (CK-2) CK-MB (CK-2) Rel Index Troponin I Total Protein Albumin Globulin Albumin/Globulin Ratio Nasal Screen MRSA (PCR) Salicylates U Morph 300 ng/mL cutoff Negative Ur Oxycodone Screen Negative Urine Methadone Screen Negative Acetaminophen Ur Barbiturates Screen Negative U Tricyclic Antidepress Negative Ur Phencyclidine Scrn Negative Ur Amphetamines Screen Negative U Methamphetamines Scrn Negative Ur MDMA Scrn (Ecstasy) Negative U Benzodiazepines Scrn Negative Urine Cocaine Screen Negative U Marijuana (THC) Screen Negative Ethyl Alcohol Assessment & Plan Assessment & Plan narrative: Brad Benoit is an 83-year-old male with a past medical history significant for hypertension, hyperlipidemia, hypothyroidism and recently diagnosed multiple m yeloma and end-stage renal disease on chemotherapy and dialysis who presented to the ED after accidentally taking the wrong medication. 1. Possible accidental amlodipine ingestion/overdose, present on admission. Active. -Patient accidentally took 10 tablets of in correct medication for which he believes was amlodipine, however, there does not seem to be any extra medication missing from bottle. -Poison Control has been contacted by ED and received treatment algorithm should he become bradycardic or hypotensive. -Received activated charcoal en route with EMS and 500 cc of IV fluid with NS in ED. -Continue to monitor closely on telemetry. -urine toxicology negative, acetaminophen level < 10 and salicylate level < 1.0. -No metabolic derangements specifically hyperglycemia. -Continue to monitor for metabolic derangement and electrolytes closely. Repeat BMP at 1800. 2. Acute contact dermatitis, present on admission. Active. -Patient has a pruritic maculopapular rash on the back of his neck, upper back, and upper chest. Patient believes his rash may be due to a chair he has been sitting in recently which no longer has a cover on it. Does not appear to be a drug rash and his oncologist does not believe this is related to chemotherapy. -Ordered triamcinolone cream to be applied to rash twice daily as needed for itching. 3. Multiple myeloma, chronic, present on admission. Stable. -Followed by oncology, Dr. Moore and undergoing chemotherapy with Cytoxan and Velcade for which he has completed 2 cycles. -Patient is on dexamethasone 40 mg on Saturdays. Patient is not believe he took his dexamethasone today and his medication bottle is full and not missing [address] Moore who recommends giving dexamethasone 40 mg PO x1. -Continue regular follow-up and chemotherapy next week with Oncology. 4. 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 Stable. -Followed by Nephrology, Dr. Hannon and receives hemodialysis on Monday, , Monday which he will continue next week. Current creatinine 3.30. 5. Hypertension, chronic, present on admission. Stable. -Will hold off on amlodipine for now. Ordered labetalol 10 mg IV as needed for SBP > 180 mmHg. 6. Hyperlipidemia, chronic, present on admission. Stable. -Continue lovastatin 40 mg daily at bedtime. 7. Hypothyroidism, chronic, present on admission. Stable. -Ordered TSH with reflex to free T4, pending. -Continue levothyroxine 175 mcg daily. Patient is admitted under observation status with expected length of stay less than 2 midnights due to severity of presenting symptoms, risk of adverse event, and complexity of treatment plan. Quality VTE Deep Vein Thrombosis/Pulmonary Embolism Present on Admission: No
--- NOTE | 2018-11-10 16:36 | PC.NURSE ---
Pt. so far has had 2 bm which were both large and charcoal color.
--- NOTE | 2018-11-10 16:47 | PC.NURSE ---
Poison control called and asked for pt's. update, given update and current vital signs.
[2018-11-10] MEDS: TRIAMCINOLONE 0.1% OINT 15 GM 1 APPLIC TOP (17:48)
[2018-11-10] MEDS: dexAMETHasone 4 MG TABLET 40 MG PO (17:48)
[2018-11-10 18:51] LABS: BUN Creatinine Ratio 7.4 (6-22); Blood Urea Nitrogen 26 mg/dL (9-20); Calcium 8.9 mg/dL (8.4-10.2); Carbon Dioxide 28 mmol/L (22-32); Chloride 99 mmol/L (98-107); Estimated Glomerular Filt Rate 16.8 mL/min (>60); Glucose 131 mg/dL (80-110); HEMOLYSIS < 15 (0-50); Potassium 4.2 mmol/L (3.4-5.1); Sodium 137 mmol/L (137-145)
[2018-11-10 19:01] LABS: Acetaminophen < 10 ug/mL (10-30); Salicylate < 1.0 mg/dL (<20)
[2018-11-10] MEDS: HEPARIN 5,000 UNIT/ML VIAL 5000 UNIT SUBCUT (21:12)
[2018-11-11 00:27] VITALS: BP 150/76; PULSE 67; RESP 16; TEMP 36.6; O2SAT 94
[2018-11-11 05:04] VITALS: BP 151/82; PULSE 84; RESP 10; TEMP 36.9; O2SAT 96
[2018-11-11 05:42] LABS: Alanine Aminotransferase 21 IU/L (21-72); Albumin 3.6 g/dL (3.5-5.0); Albumin Globulin Ratio 1.3 (1.0-2.8); Alkaline Phosphatase 101 U/L (38-126); Aspartate Aminotransferase 20 IU/L (17-59); BUN Creatinine Ratio 8.8 (6-22); Bilirubin Total 0.5 mg/dL (0.2-1.3); Blood Urea Nitrogen 37 mg/dL (9-20); Calcium 9.1 mg/dL (8.4-10.2); Carbon Dioxide 26 mmol/L (22-32); Chloride 99 mmol/L (98-107); Estimated Glomerular Filt Rate 13.6 mL/min (>60); Globulin 2.7 g/dL (1.7-4.1); Glucose 154 mg/dL (80-110); HEMOLYSIS < 15 (0-50); Potassium 4.8 mmol/L (3.4-5.1); Sodium 137 mmol/L (137-145); Total Protein 6.3 g/dL (6.3-8.2)
[2018-11-11 07:45] VITALS: BP 142/81; PULSE 83; RESP 14; TEMP 36.5; O2SAT 95
[2018-11-11 08:00] VITALS: O2SAT 98
[2018-11-11] MEDS: TRIAMCINOLONE 0.1% OINT 15 GM 1 APPLIC TOP (08:19)
[2018-11-11] MEDS: HEPARIN 5,000 UNIT/ML VIAL 5000 UNIT SUBCUT (08:20)
--- NOTE | 2018-11-11 08:24 | P.DS_ITS ---
History of Present Illness History of Present Illness Chief complaint: accidental overdose Narrative: Written by myself Dr. Maher: Brad Benoit is an 83-year-old male with a past medical history significant for hypertension, hyperlipidemia, hypothyroidism and recently diagnosed multiple myeloma and end-stage renal disease on chemotherapy and dialysis who presented to the ED after accidentally taking the wrong medication. The patient reports that he just moved in to [facility] on [facility] and his medications were not in their usual place. He believes he took 10 tablets of 2.5 mg amlodipine rather than 10 tablets of 4 mg dexamethasone. The patient was recently diagnosed with multiple myeloma due to acute renal failure and is followed by Dr. Moore and has completed 2 cycles of chemotherapy with Velcade and Cytoxan. Per the patient's oncologist, he receives chemotherapy on Monday and with dexamethasone on Saturdays, as well as, hemodialysis Monday, Monday, and Monday. The patient reports various scheduling conflicts and constant rescheduling, therefore, it is difficult for him to keep track of his chemotherapy and hemodialysis schedule. The patient brought both bottles of amlodipine and dexamethasone into the hospital for which no tablets are missing from the dexamethasone (quantity #40 filled on 11/06) and 15 tablets are missing of amlodipine which would be anticipated if he takes 1 tablet a day (filled on 10/25). It is unclear what medication the patient took. The patient has no signs or symptoms of amlodipine overdose. His vital signs are all stable and he is slightly hypertensive. He denies headache, chest pain, shortness of breath, lightheadedness or dizziness, vision changes, tinnitus, abdominal pain, nausea, or vomiting. The patient is urinating and eliminating without difficulty. He has no complaints overall. The patient called 911 and received activated charcoal en route via EMS. Poison Control was contacted by the ED provider and an algorithm provided for treatment. The patient was admitted for close hemodynamic observation. Of note, the patient has a pruritic maculopapular rash on the right side of the back of his neck, upper back, and upper chest that started yesterday. Patient believes his rash may be due to a chair he has been sitting in recently which no longer has a cover on it. The rash does not appear to be a drug rash and his oncologist does not believe this is related to chemotherapy. Discharge Providers Provider Date of admission: 11/10/18 11:53 Discharge Date: 11/11/18 Primary care physician: Jay Benjamin MD Consults: 11/10/18 12:56 Consult to Dietitian, Adult Routine Comment: Reason For Exam: at risk Discharge provider: Loly Maher DO Summary Hospital Course Discharge Diagnosis: 1. Possible accidental amlodipine ingestion/overdose, present on admission. Resolved. 2. Acute contact dermatitis, present on admission. Active. 3. Multiple myeloma, chronic, present on admission. Stable. 4. 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 Stable. 5. Hypertension, chronic, present on admission. Stable. 6. Hyperlipidemia, chronic, present on admission. Stable. 7. Hypothyroidism, chronic, present on admission. Stable. Hospital Course: Brad Benoit is an 83-year-old male with a past medical history significant for hypertension, hyperlipidemia, hypothyroidism and recently diagnosed multiple myeloma and end-stage renal disease on chemotherapy and dialysis who presented to the ED after accidentally taking the wrong medication. 1. Possible accidental amlodipine ingestion/overdose, present on admission. Resolved. -Patient accidentally took 10 tablets of an incorrect medication for which he believes was amlodipine, however, there does not seem to be any extra medication missing from bottle. -Poison Control was contacted by ED and received treatment algorithm should he become bradycardic or hypotensive. -Received activated charcoal en route with EMS and 500 cc of IV fluid with NS in ED. -Continued to monitor closely on telemetry. Patient did not have any ectopy or significant hypotension/bradycardia as anticipated with large dose of amlodipine. -Urine toxicology negative, acetaminophen level < 10 and salicylate level < 1.0. -No metabolic derangements specifically hyperglycemia. -Continued to monitor for metabolic derangement and electrolytes closely. 2. Acute contact dermatitis, present on admission. Active. -Patient has a pruritic maculopapular rash on the back of his neck, upper back, and upper chest. Patient believes his rash may be due to a chair he has been sitting in recently which no longer has a cover on it. Does not appear to be a drug rash and his oncologist does not believe this is related to chemotherapy. -Continued triamcinolone cream to be applied to rash twice daily as needed for itching. 3. Multiple myeloma, chronic, present on admission. Stable. -Followed by oncology, Dr. Moore and undergoing chemotherapy with Cytoxan and Velcade for which he has completed 2 cycles. -Patient is on dexamethasone 40 mg on Saturdays. Patient did not believe he took his dexamethasone on day of admission and his medication bottle was full and not missing [address] Moore who recommended giving dexamethasone and patient received dexamethasone 40 mg PO x1. -Continue regular follow-up and chemotherapy next week with Oncology. 4. 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 Stable. -Followed by Nephrology, Dr. Hannon and receives hemodialysis on Monday, Monday, Monday which he will continue next week. Current creatinine 4.2. Scheduled for HD tomorrow at 1:45. 5. Hypertension, chronic, present on admission. Stable. -Held amlodipine for at least 24 hours. Restarted amlodipine 2.5 mg daily. Ordered labetalol 10 mg IV as needed for SBP > 180 mmHg. 6. Hyperlipidemia, chronic, present on admission. Stable. -Continued lovastatin 40 mg daily at bedtime. 7. Hypothyroidism, chronic, present on admission. Stable. -TSH normal at 2.30. -Continued levothyroxine 175 mcg daily. Exam Vital Signs (past 8 hours): - 11/11/18 00:27 11/11/18 05:04 11/11/18 07:45 Temperature 98 F 98.5 F 97.7 F Pulse Rate 67 84 83 Respiratory Rate 16 10 L 14 Blood Pressure 150/76 H 151/82 H 142/81 H Pulse Oximetry 94 96 95 Oxygen Delivery Method Room Air Oxygen Flow Rate 0 Narrative Exam Narrative: General: Elderly male lying in bed and in no acute distress, well-developed, well-nourished, appropriately interactive. HEENT: Normocephalic, atraumatic. External ears without defect. Pupils equal, round, and reactive to light. Anicteric sclerae, moist conjunctivae, and no lid lag. Oropharynx free of erythema and cobble stoning with moist mucosa. Neck: Supple with full range of motion. No jugular venous distension. No bruits. No lymphadenopathy or thyromegaly. Cardiovascular: Regular rate and rhythm with holosystolic murmur grade 2/6 radiating to carotids bilaterally. No rubs or gallops appreciated. Temporary dialysis catheter on right chest. Pulmonary: Clear to auscultation bilaterally without crackles, wheezes, or rhonchi. Normal respiratory effort with no use of accessory muscles. Abdomen: Soft, bowel sounds present, nontender, nondistended. No hepatosplenomegaly or masses appreciated. Extremities: No clubbing, cyanosis, or edema. Skin: Normal temperature, turgor, and texture; no ulcers, or subcutaneous nodules appreciated. Maculopapular pruritic rash on left side of the back of neck, upper back, and upper chest consistent with contact dermatitis and is impr oving. Neurological: Cranial nerves grossly intact. Psychiatric: Normal mood and affect. Alert and oriented to person, place, and time. Mild cognitive impairment versus early dementia with short-term memory recall deficit. Objective Labs Result Diagrams: 11/10/18 09:15 11/11/18 04:52 Labs: Laboratory Results - last 24 hr 11/10/18 11/10/18 11/10/18 09:15 09:15 12:00 WBC 3.3 L RBC 2.62 L Hgb 7.9 L Hct 23.4 L MCV 89.3 MCH 30.2 MCHC 33.8 RDW 17.0 H Plt Count 237 Neut % (Auto) 73.0 Lymph % (Auto) 16.0 L [place] % (Auto) 7.1 Eos % (Auto) 3.2 Baso % (Auto) 0.7 Neut # (Auto) 2400 Lymph # (Auto) 500 L [place] # (Auto) 200 Eos # (Auto) 100 Baso # (Auto) 0 Sodium 137 Potassium 4.3 Chloride 96 L Carbon Dioxide 31 BUN 26 H Creatinine 3.30 H Estimated GFR 18.0 L BUN/Creatinine Ratio 7.9 Glucose 135 H Calcium 9.0 Total Bilirubin 0.6 AST 22 ALT 19 L Alkaline Phosphatase 90 Total Creatine Kinase 41 L CK-MB (CK-2) TNP CK-MB (CK-2) Rel Index TNP Troponin I 0.028 Total Protein 6.4 Albumin 3.7 Globulin 2.7 Albumin/Globulin Ratio 1.4 TSH Nasal Screen MRSA (PCR) Negative for mrsa Salicylates < 1.0 U Morph 300 ng/mL cutoff Ur Oxycodone Screen Urine Methadone Screen Acetaminophen < 10 L Ur Barbiturates Screen U Tricyclic Antidepress Ur Phencyclidine Scrn Ur Amphetamines Screen U Methamphetamines Scrn Ur MDMA Scrn (Ecstasy) U Benzodiazepines Scrn Urine Cocaine Screen U Marijuana (THC) Screen Ethyl Alcohol < 10 11/10/18 11/10/18 11/10/18 12:00 18:17 18:17 WBC RBC Hgb Hct MCV MCH MCHC RDW Plt Count Neut % (Auto) Lymph % (Auto) [place] % (Auto) Eos % (Auto) Baso % (Auto) Neut # (Auto) Lymph # (Auto) [place] # (Auto) Eos # (Auto) Baso # (Auto) Sodium 137 Potassium 4.2 Chloride 99 Carbon Dioxide 28 BUN 26 H Creatinine 3.50 H Estimated GFR 16.8 L BUN/Creatinine Ratio 7.4 Glucose 131 H Calcium 8.9 Total Bilirubin AST ALT Alkaline Phosphatase Total Creatine Kinase CK-MB (CK-2) CK-MB (CK-2) Rel Index Troponin I Total Protein Albumin Globulin Albumin/Globulin Ratio TSH 2.30 Nasal Screen MRSA (PCR) Salicylates U Morph 300 ng/mL cutoff Negative Ur Oxycodone Screen Negative Urine Methadone Screen Negative Acetaminophen Ur Barbiturates Screen Negative U Tricyclic Antidepress Negative Ur Phencyclidine Scrn Negative Ur Amphetamines Screen Negative U Methamphetamines Scrn Negative Ur MDMA Scrn (Ecstasy) Negative U Benzodiazepines Scrn Negative Urine Cocaine Screen Negative U Marijuana (THC) Screen Negative Ethyl Alcohol 11/10/18 11/11/18 18:17 04:52 WBC RBC Hgb Hct MCV MCH MCHC RDW Plt Count Neut % (Auto) Lymph % (Auto) [place] % (Auto) Eos % (Auto) Baso % (Auto) Neut # (Auto) Lymph # (Auto) [place] # (Auto) Eos # (Auto) Baso # (Auto) Sodium 137 Potassium 4.8 Chloride 99 Carbon Dioxide 26 BUN 37 H Creatinine 4.20 H Estimated GFR 13.6 L BUN/Creatinine Ratio 8.8 Glucose 154 H Calcium 9.1 Total Bilirubin 0.5 AST 20 ALT 21 Alkaline Phosphatase 101 Total Creatine Kinase CK-MB (CK-2) CK-MB (CK-2) Rel Index Troponin I Total Protein 6.3 Albumin 3.6 Globulin 2.7 Albumin/Globulin Ratio 1.3 TSH Nasal Screen MRSA (PCR) Salicylates < 1.0 U Morph 300 ng/mL cutoff Ur Oxycodone Screen Urine Methadone Screen Acetaminophen < 10 L Ur Barbiturates Screen U Tricyclic Antidepress Ur Phencyclidine Scrn Ur Amphetamines Screen U Methamphetamines Scrn Ur MDMA Scrn (Ecstasy) U Benzodiazepines Scrn Urine Cocaine Screen U Marijuana (THC) Screen Ethyl Alcohol Discharge Plan Discharge Plan Patient Disposition: Home Discharge comment: You are being discharged home back to [facility]. Please continue using a pill divider to dose your medications to avoid incorrect administration. Please keep your scheduled hemodialysis appointment on Sunday 11/12. Please follow-up with your oncologist, Dr. Moore, at your scheduled appointment to continue treatment for your multiple myeloma. Please follow-up with your primary care provider, Dr. Benjamin, regarding your hospitalization and previous rash. Your prescribed triamcinolone cream to apply to rash 1-2 times daily. Discharge Med Rec/Prescriptions Prescriptions: New triamcinolone acetonide 0.1 % Ointment 1 applic topical BID PRN (Reason: Rash) Qty: 1 RF: 0 Continued levothyroxine 175 mcg tablet 175 mcg PO DAILY RF: 0 lovastatin 40 mg Tablet 40 mg PO QPM RF: 0 amlodipine 2.5 mg tablet 2.5 mg PO DAILY RF: 0 dexamethasone 4 mg tablet 40 mg PO QWEEK RF: 0 acetaminophen [Tylenol] 325 mg Tablet 650 mg PO BIDAC RF: 0 Follow up/Referrals: Jay Benjamin MD [Primary Care Provider] - 1 Week Provider Discharge Instructions Diet: Diet as Tolerated, Low-fat, Low-sodium and Low-cholesterol Activity: Activity as tolerated Visit Report/Discharge Packet Instructions: Taking Prescription Medications, DI for Contact Dermatitis, Triamcinolone Topical Discharge Data Primary Care Provider: Jay Benjamin Attending Provider: Loly Maher Admit Date/Time: 11/10/18 11:53 Quality VTE Deep Vein Thrombosis/Pulmonary Embolism Present on Admission: No
[2018-11-11] MEDS: AMLODIPINE 2.5 MG TABLET PO (08:47)
[2018-11-11] MEDS: LEVOTHYROXINE 100 MCG TABLET PO (08:48)
[2018-11-11] MEDS: LEVOTHYROXINE 75 MCG TABLET PO (08:49)
--- NOTE | 2018-11-11 12:05 | PC.NURSE ---
Pt d/c to [place] [id number] via POV. D/c teaching completed with , Carol, at bedside. Reviewed medication schedule, doses, routes, times, side effects. Reviewed methods to ensure appropriate/timely/correct medication administration. Encouraged use of pill organizer system and check sheet. Pt states he is thinking about asking the pharmacy to supply his medications in blister packs. Reviewed educational material regarding contact dermatitis and topical medication for same. Both pt and verbalize understanding of teaching. Pt ambulated independently to w/c with steady gait and was escorted to POV (driven by ) with all belongings and in no distress.
== END 2018-11-11 11:50 | disposition home or self-care (01) ==
LOC: ED 11:30 → AC 11:58 → ICU 12:02
PROVIDERS: Admitting Provider Internal Medicine; Emergency Provider Emergency Medicine; PCP Internal Medicine; Visit Provider Internal Medicine
DX: T46.1X1A Poisoning by calcium-channel blockers, accidental (unintentional), initial encounter (principal); E03.9 Hypothyroidism, unspecified; E78.5 Hyperlipidemia, unspecified; I12.0 Hypertensive chronic kidney disease with stage 5 chronic kidney disease or end stage renal disease; N18.6 End stage renal disease; C90.00 Multiple myeloma not having achieved remission; L25.9 Unspecified contact dermatitis, unspecified cause
CPT/HCPCS: 36415; 80048; 80053; 80305; 80320; 80329; 82550; 84443; 84484; 85025; 87797; 93005; 94760; 94762; 96360; 96361; 96372; 99283; 99284; G0378; G0480; J1644

== ENCOUNTER → 2018-11-28 15:10 | Outpatient (ROUT) | payer MEDICARE, OTHER, SELFPAY ==
[2018-11-10 11:59] VITALS: BMI 24.5
[2018-11-28 15:36] LABS: BUN Creatinine Ratio 8.6 (6-22); Blood Urea Nitrogen 43 mg/dL (9-20); Calcium 8.8 mg/dL (8.4-10.2); Carbon Dioxide 31 mmol/L (22-32); Chloride 97 mmol/L (98-107); Estimated Glomerular Filt Rate 11.1 mL/min (>60); Glucose 122 mg/dL (80-110); HEMOLYSIS < 15 (0-50); Potassium 4.7 mmol/L (3.4-5.1); Sodium 139 mmol/L (137-145)
[2018-11-28 16:07] LABS: TSH w/ Reflex to FT4 2.43 uIU/mL (0.47-4.68)
[2018-11-28 16:27] LABS: Vitamin B12 384 pg/mL (239-931)
== END ==
PROVIDERS: PCP Internal Medicine; Visit Provider Internal Medicine
DX: R41.3 Other amnesia (principal); E03.9 Hypothyroidism, unspecified
CPT/HCPCS: 80048; 82607; 84443

== ENCOUNTER → 2019-02-07 14:20 | Oncology outpatient (ONC) | payer MEDICARE, OTHER, SELFPAY ==
[2018-11-10 11:59] VITALS: BMI 24.5
[2019-01-31 13:10] VITALS: BP 148/75; PULSE 77; RESP 18; TEMP 36.3; O2SAT 100
--- NOTE | 2019-01-31 13:20 | P.CONONC_ITS ---
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 Narrative: Brad Benoit is a 83 year old male who I have been following at [facility]. He lives on the [facility] and for transportation convenience, he requested that his care be transferred to [facility]. Mr.?Brad Benoit?has medical co-morbidities most notable for anemia,?aortic stenosis, HTN (hypertension),?and hypothyroidism. In August 2018, he presented with acute kidney failure, hyperkalemia,?and severe anemia requiring blood transfusion. He was found to have?[place] [address].3 mg/L while the free kappa light chain of 15.7. Immunofixation showed free lambda monoclonal protein. Serum protein electrophoresis showed abnormal protein band 0.9 g/dL.?Repeat testing on 09/04/2018 showed lamda light chain?93881.1, free kappa light chain 18.1.Serum TRE reveals the presence of monoclonal free lambda light chains.?M-spike 1.2 g/dL.?On 09/14/2018, BMA/Bx was done and the hematopathology showed hypercellular marrow for age with involvement by plasma cell neoplasm (~50-60% involvement) consistent with diagn osis of multiple myeloma.? ? He was hospitalized from 09/19/2018 through 09/27/2018. He underwent tunnel catheter placement and started on hemodialysis. In addition , he was started on CyBorD on 09/20/2018 while he was in the hospital. He is now getting HD regularly. Up until now, he has received 5 cycles of CyBorD with last Bortezomib injection on 12/29/2018 and last Cytaxan on 12/18/2018. He is on the waiting list of [facility]. For now, he is getting hemodialysis at [place] on Monday, Monday, and Monday. Today he came in accompanied by his , and his son. He is complaining of memory loss. He denies any pain. He sleeps more, and does not have energy as he used to. He reports good appetite. He is losing weight. No nauseas and no vomiting. No diarrhea. CC: Ann oMore MD Home Medications and Allergies Home Medications Medication Instructions Recorded Confirmed Type levothyroxine 175 mcg PO DAILY 08/15/18 01/31/19 History lovastatin 40 mg PO QPM 08/15/18 01/31/19 History acetaminophen [Tylenol] 650 mg PO BIDAC 11/10/18 01/31/19 History amlodipine 2.5 mg PO DAILY 11/10/18 01/31/19 History dexamethasone 40 mg PO QWEEK 11/10/18 01/31/19 History triamcinolone acetonide 1 applic TOPICAL BID PRN #1 tube 11/11/18 01/31/19 Rx aspirin 81 mg PO DAILY 01/31/19 01/31/19 History lisinopril 5 mg PO DAILY 01/31/19 01/31/19 History psyllium husk [Metamucil] 3.4 g PO PRN PRN 01/31/19 01/31/19 History Allergies Allergy/AdvReac Type Severity Reaction Status Date / Time codeine Allergy Unknown Verified 08/15/18 13:43 Penicillins Allergy Verified 08/15/18 13:10 Medical History - Medical, Surgical, Family History Medical History: Medical History (Last Reviewed 11/10/18 @ 15:57 by Loly Maher DO) Aortic stenosis Hemodialysis patient History of chemotherapy Hyperlipidemia Hypertension Hypothyroidism Multiple myeloma Surgical History: Surgical History (Last Reviewed 11/10/18 @ 15:57 by Loly Maher DO) History of tonsillectomy S/P right rotator cuff repair Family History: Family History (Last Updated 11/10/18 @ 16:09 by Loly Maher DO) Father Rheumatic fever with cardiac involvement Heart disease Typhoid fever Mother Parkinsons disease Dementia Brother No problems noted. Brother Heart disease - Social History Smoking Status: Former smoker Review of Systems All systems PM: reviewed and no additional remarkable complaints except as stated Exam Vital signs: Vital Signs Temp Pulse Resp BP Pulse Ox 01/31/19 13:10 97.3 F L 77 18 148/75 H 100 Intake and Output 01/30/19 01/31/19 01/31/19 23:59 07:59 15:59 Other: Weight 74 kg Patient Weight 01/31/19 23:59 Weight 74 kg ECOG 1 Narrative: General: WDWN, NAD,?pleasant and cooperative Heent: NCAT, EOMI, PERLLA, anicteric sclearae. Neck: supple, no palpable thyromegaly or lymphadenopathy Respiratory: CTAB, no wheezes. Cardiovascular: RRR, S1 and S2 normal. 5/6 SM aortic valve.? Abdomen: soft, NTND, no palpable hepatosplenomegaly, no palpable mass. Lymphatic: no palpable lymph nodes in neck, axillae Extremities: 1+ pitting edema b/l legs Skin: no rashes, no ulcers, no petechiae Neurologic: AOx3, CN 2-12 grossly intact, no focal motor or sensory defect. ? Psychiatric: appropriate mood and affect, seems to have memory difficulty Results - Labs Laboratory Last Values WBC 7.5 X10^3/uL (4.5-11.0) 01/31/19 14:18 RBC 3.86 X10^6/uL (4.5-5.9) L 01/31/19 14:18 Hgb 12.9 g/dL (13.5-17.5) L 01/31/19 14:18 Hct 38.9 % (41-53) L 01/31/19 14:18 MCV 100.9 fL (80-100) H 01/31/19 14:18 MCH 33.4 PG (26-34) 01/31/19 14:18 MCHC 33.1 % (30-36) 01/31/19 14:18 RDW 17.9 % (11.6-14.8) H 01/31/19 14:18 Plt Count 233 X10^3/uL (150-400) 01/31/19 14:18 Neut % (Auto) 80.9 % (50-75) H 01/31/19 14:18 Lymph % (Auto) 10.9 % (25-40) L 01/31/19 14:18 [place] % (Auto) 6.9 % (3-14) 01/31/19 14:18 Eos % (Auto) 0.7 % (2-4) L 01/31/19 14:18 Baso % (Auto) 0.6 % (0-2) 01/31/19 14:18 Neut # (Auto) 6100 /uL (1743-1333) 01/31/19 14:18 Lymph # (Auto) 800 /uL (4884-3645) L 01/31/19 14:18 [place] # (Auto) 500 /uL (0-900) 01/31/19 14:18 Eos # (Auto) 0 /uL (0-450) 01/31/19 14:18 Baso # (Auto) 0 /uL (0-100) 01/31/19 14:18 ESR 13 MM/HR (0-15) 01/31/19 14:18 Sodium 138 mmol/L (137-145) 01/31/19 14:18 Potassium 4.8 mmol/L (3.4-5.1) 01/31/19 14:18 Chloride 97 mmol/L (98-107) L 01/31/19 14:18 Carbon Dioxide 27 mmol/L (22-32) 01/31/19 14:18 BUN 57 mg/dL (9-20) H 01/31/19 14:18 Creatinine 6.40 mg/dL (0.66-1.25) H 01/31/19 14:18 Estimated GFR 8.4 mL/min (>60) L 01/31/19 14:18 BUN/Creatinine Ratio 8.9 (6-22) 01/31/19 14:18 Glucose 107 mg/dL (80-110) 01/31/19 14:18 Calcium 9.1 mg/dL (8.4-10.2) 01/31/19 14:18 Total Bilirubin 0.5 mg/dL (0.2-1.3) 01/31/19 14:18 AST 17 IU/L (17-59) 01/31/19 14:18 ALT 14 IU/L (<50) 01/31/19 14:18 Alkaline Phosphatase 90 U/L (38-126) 01/31/19 14:18 Lactate Dehydrogenase 479 U/L (313-618) 01/31/19 14:18 C-Reactive Protein 7.5 mg/dL (<1.0) H 01/31/19 14:18 Total Protein 6.5 g/dL (6.3-8.2) 01/31/19 14:18 Albumin 4.2 g/dL (3.5-5.0) 01/31/19 14:18 Globulin 2.3 g/dL (1.7-4.1) 01/31/19 14:18 Albumin/Globulin Ratio 1.8 (1.0-2.8) 01/31/19 14:18 Assessment and Plan (1) Multiple myeloma Overview: 83 y.o.?male?diagnosed with lamda light chain MM via BMA/Bx on 09/14/2018 with plasma cells accounting for 50-60%. He initially presented with acute kidney failure, hyperkalemia,?and severe anemia requiring blood transfusion. He has been on hemodialysis regularly and chemotherapy CyBorD since Sep 20, 2018. His chemotherapyCyBorD is as follows: 21-day cycle until disease progression or unacceptable toxicity Bortezomib 1.3 mg/m2 subQ on days 1, 4, 8 an 11 of 21 day cycle Dexamethasone 40 mg on days 1 through 4, 8 and 15 for cycle 1, then 40 mg weekly. Cyclophosphamide 450 mg/m2 on day 1 (50% dose reduction due to DEISY for Cycle 1#, and then 75% after).? ? Assessment: Today,?I talked with the patient, his and his son about how to transfer the care from [facility] to [facility]. When I saw the patient last time on 12/18/2018, I showed them the laboratory tests results in graphs. It revealed that the serum free light chain has decreased significantly in the beginning, but the most recent measurement showed that the level is slightly increased compared to the martha. I talked with them that this means his underlying light chain multiple myeloma probably is intrinsically somewhat refractory to the treatment. In addition patient has a kidney failure requiring regular hemodialysis. Thus, the treatment of the light chain multiple myeloma somewhat difficult and the timing of the medications are also delicate. I recommended a second opinion from [facility] [place]. Both the patient and patient's voiced understanding. Meanwhile we will continue current treatment without changes. ? Plan: 1. CBC, CMP, B2M, LDH, SPEP, IFIX, SFLC 2. Awaiting [facility] second opinion 3. RTC in 1 week to discuss continuation of CyBorD cycle 6# (2) Acute renal failure Continue HD on Mon, Wed, Fri per Dr. Hannon
[2019-01-31 14:35] LABS: Add Manual Diff / Slide Review NO; Basophils Absolute Auto 0 /uL (0-100); Basophils Percent Auto 0.6 % (0-2); Eosinophils Absolute Auto 0 /uL (0-450); Eosinophils Percent Auto 0.7 % (2-4); Hematocrit 38.9 % (41-53); Hemoglobin 12.9 g/dL (13.5-17.5); Lymphocytes Absolute Auto 800 /uL (1100-4500); Lymphocytes Percent Auto 10.9 % (25-40); Mean Corpuscular HGB Conc 33.1 % (30-36); Mean Corpuscular Hemoglobin 33.4 PG (26-34); Mean Corpuscular Volume 100.9 fL (80-100); Monocytes Absolute Auto 500 /uL (0-900); Monocytes Percent Auto 6.9 % (3-14); Neutrophils Absolute Auto 6100 /uL (1500-7000); Neutrophils Percent Auto 80.9 % (50-75); Platelet Count 233 X10^3/uL (150-400); Red Blood Cell Count 3.86 X10^6/uL (4.5-5.9); Red Cell Distribution Width 17.9 % (11.6-14.8); White Blood Cell Count 7.5 X10^3/uL (4.5-11.0)
[2019-01-31 15:03] LABS: Erythrocyte Sedimentation Rate 13 MM/HR (0-15)
[2019-01-31 15:22] LABS: Alanine Aminotransferase 14 IU/L (<50); Albumin 4.2 g/dL (3.5-5.0); Albumin Globulin Ratio 1.8 (1.0-2.8); Alkaline Phosphatase 90 U/L (38-126); Aspartate Aminotransferase 17 IU/L (17-59); BUN Creatinine Ratio 8.9 (6-22); Bilirubin Total 0.5 mg/dL (0.2-1.3); Blood Urea Nitrogen 57 mg/dL (9-20); C-Reactive Protein Quant 7.5 mg/dL (<1.0); Calcium 9.1 mg/dL (8.4-10.2); Carbon Dioxide 27 mmol/L (22-32); Chloride 97 mmol/L (98-107); Estimated Glomerular Filt Rate 8.4 mL/min (>60); Globulin 2.3 g/dL (1.7-4.1); Glucose 107 mg/dL (80-110); HEMOLYSIS < 15 (0-50); Lactate Dehydrogenase 479 U/L (313-618); Potassium 4.8 mmol/L (3.4-5.1); Sodium 138 mmol/L (137-145); Total Protein 6.5 g/dL (6.3-8.2)
[2019-02-02 10:53] LABS: Free Kappa Light Chain 11.5 mg/L (3.3-19.4); Free Kappa/ Lambda Ratio < 0.01 (0.26-1.65); Free Lambda 10653.5 mg/L (5.7-26.3)
[2019-02-05 11:50] LABS: Beta-2-Microglobulin 28.88 mg/L (< 2.52)
[2019-02-05 13:43] LABS: Alpha 1 Globulin 0.4 g/dL (0.2-0.3); Alpha 2 Globulin 0.6 g/dL (0.5-0.9); Beta 1 Globulin 0.5 g/dL (0.4-0.6); Gamma Globulin 0.2 g/dL (0.8-1.7); Protein, Total 6.3 g/dL (6.1-8.1)
[2019-02-07 14:49] VITALS: BP 139/76; PULSE 92; RESP 18; TEMP 36.6; O2SAT 99
--- NOTE | 2019-02-07 15:04 | ONC.PN ---
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 Oncology History: Brad Benoit is a 83 year old male who I have been following at [facility]. He lives on the [facility] and for transportation convenience, he requested that his care be transferred to [facility]. Mr.?Brad Benoit?has medical co-morbidities most notable for anemia,?aortic stenosis, hypertension,?and hypothyroidism. In August 2018, he presented with acute kidney failure, hyperkalemia,?and severe anemia requiring blood transfusion. He was found to have?exceedingly [place] [address].3 mg/L while the free kappa light chain of 15.7. Immunofixation showed free lambda monoclonal protein. Serum protein electrophoresis showed abnormal protein band 0.9 g/dL.?Repeat testing on 09/04/2018 showed lamda light chain?84287.1, free kappa light chain 18.1. Serum TRE revealed the presence of monoclonal free lambda light chains.?M-spike 1.2 g/dL.?On 09/14/2018, BMA/Bx was done and the hematopathology showed hypercellular marrow for age with involvement by plasma cell neoplasm (~50-60% involvement) consistent with diagnosis of multiple myeloma.?He was hospitalized from 09/19/2018 through 09/27/2018. He underwent tunnel catheter placement and was started on hemodialysis. In addition , he was started on CyBorD on 09/20/2018 while he was in the hospital. Interim Events: Up until now, he has received 5 cycles of CyBorD with last Bortezomib injection on 12/29/2018 and last Cytaxan on 12/18/2018. He is still on the waiting list of [facility]. For now, he is getting hemodialysis at [place] on Monday, Monday, and Monday. Today he came in accompanied by his , his daughter and his friend. Patient is complaining of right posterior neck pain, and left upper thigh shooting pain, which seems to be slowly getting better. He denies any fever or chills, no nausea and no vomiting. He has scheduled appointment at [facility] visit on 03/12/2019. - Patient Self-Reported Symptoms SR Cardiovascular issues: Dizzy/lightheaded SR Musculoskeletal issues: Muscle weakness, Back or neck pain SR Neuro issues: Lightheaded/dizzy - Additional ROS All systems PM: reviewed and no additional remarkable complaints except as stated Home Medications and Allergies Home Medications Medication Instructions Recorded Confirmed Type levothyroxine 175 mcg PO DAILY 08/15/18 01/31/19 History lovastatin 40 mg PO QPM 08/15/18 01/31/19 History acetaminophen [Tylenol] 650 mg PO BIDAC 11/10/18 01/31/19 History amlodipine 2.5 mg PO DAILY 11/10/18 01/31/19 History dexamethasone 40 mg PO QWEEK 11/10/18 01/31/19 History triamcinolone acetonide 1 applic TOPICAL BID PRN #1 tube 11/11/18 01/31/19 Rx aspirin 81 mg PO DAILY 01/31/19 01/31/19 History lisinopril 5 mg PO DAILY 01/31/19 01/31/19 History psyllium husk [Metamucil] 3.4 g PO PRN PRN 01/31/19 01/31/19 History Allergies Allergy/AdvReac Type Severity Reaction Status Date / Time codeine Allergy Unknown Verified 08/15/18 13:43 Penicillins Allergy Verified 08/15/18 13:10 Exam Vital signs: Vital Signs Temp Pulse Resp BP Pulse Ox 02/07/19 14:49 97.9 F 92 H 18 139/76 99 Intake and Output 02/06/19 02/07/19 02/07/19 23:59 07:59 15:59 Other: Weight 75.3 kg Patient Weight 02/07/19 23:59 Weight 75.3 kg Narrative: General: WDWN, NAD,?pleasant and cooperative Heent: NCAT, EOMI, PERLLA, anicteric sclearae. Neck: supple, no palpable thyromegaly or lymphadenopathy Respiratory: CTAB, no wheezes. Cardiovascular: RRR, S1 and S2 normal. 5/6 SM aortic valve.? Abdomen: soft, NTND, no palpable hepatosplenomegaly, no palpable mass. Lymphatic: no palpable lymph nodes in neck, axillae Extremities: no edema b/l legs today. no erythema, and no rashes b/l. Skin: no rashes, no ulcers, no petechiae Neurologic: AOx3, CN 2-12 grossly intact, no focal motor or sensory defect. ? Psychiatric: appropriate mood and affect, seems to have memory difficulty Results - Labs Laboratory Last Values WBC 7.5 X10^3/uL (4.5-11.0) 01/31/19 14:18 RBC 3.86 X10^6/uL (4.5-5.9) L 01/31/19 14:18 Hgb 12.9 g/dL (13.5-17.5) L 01/31/19 14:18 Hct 38.9 % (41-53) L 01/31/19 14:18 MCV 100.9 fL (80-100) H 01/31/19 14:18 MCH 33.4 PG (26-34) 01/31/19 14:18 MCHC 33.1 % (30-36) 01/31/19 14:18 RDW 17.9 % (11.6-14.8) H 01/31/19 14:18 Plt Count 233 X10^3/uL (150-400) 01/31/19 14:18 Neut % (Auto) 80.9 % (50-75) H 01/31/19 14:18 Lymph % (Auto) 10.9 % (25-40) L 01/31/19 14:18 [place] % (Auto) 6.9 % (3-14) 01/31/19 14:18 Eos % (Auto) 0.7 % (2-4) L 01/31/19 14:18 Baso % (Auto) 0.6 % (0-2) 01/31/19 14:18 Neut # (Auto) 6100 /uL (5671-8029) 01/31/19 14:18 Lymph # (Auto) 800 /uL (5387-7307) L 01/31/19 14:18 [place] # (Auto) 500 /uL (0-900) 01/31/19 14:18 Eos # (Auto) 0 /uL (0-450) 01/31/19 14:18 Baso # (Auto) 0 /uL (0-100) 01/31/19 14:18 ESR 13 MM/HR (0-15) 01/31/19 14:18 Sodium 138 mmol/L (137-145) 01/31/19 14:18 Potassium 4.8 mmol/L (3.4-5.1) 01/31/19 14:18 Chloride 97 mmol/L (98-107) L 01/31/19 14:18 Carbon Dioxide 27 mmol/L (22-32) 01/31/19 14:18 BUN 57 mg/dL (9-20) H 01/31/19 14:18 Creatinine 6.40 mg/dL (0.66-1.25) H 01/31/19 14:18 Estimated GFR 8.4 mL/min (>60) L 01/31/19 14:18 BUN/Creatinine Ratio 8.9 (6-22) 01/31/19 14:18 Glucose 107 mg/dL (80-110) 01/31/19 14:18 Calcium 9.1 mg/dL (8.4-10.2) 01/31/19 14:18 Total Bilirubin 0.5 mg/dL (0.2-1.3) 01/31/19 14:18 AST 17 IU/L (17-59) 01/31/19 14:18 ALT 14 IU/L (<50) 01/31/19 14:18 Alkaline Phosphatase 90 U/L (38-126) 01/31/19 14:18 Lactate Dehydrogenase 479 U/L (313-618) 01/31/19 14:18 C-Reactive Protein 7.5 mg/dL (<1.0) H 01/31/19 14:18 Serum Total Protein 6.3 g/dL (6.1-8.1) 01/31/19 14:18 Total Protein 6.5 g/dL (6.3-8.2) 01/31/19 14:18 Albumin 4.0 g/dL (3.8-4.8) 01/31/19 14:18 Albumin 4.2 g/dL (3.5-5.0) 01/31/19 14:18 Globulin 2.3 g/dL (1.7-4.1) 01/31/19 14:18 Albumin/Globulin Ratio 1.8 (1.0-2.8) 01/31/19 14:18 Vgzsi-9-Jqxpvvlnv 0.4 g/dL (0.2-0.3) H 01/31/19 14:18 Myrwb-8-Lasjaujvk 0.6 g/dL (0.5-0.9) 01/31/19 14:18 Pxbt-2-Tucszavi 0.5 g/dL (0.4-0.6) 01/31/19 14:18 Zrnl-5-Zavtjyeo 0.6 g/dL (0.2-0.5) H 01/31/19 14:18 Koxy-5-Zysltyqyjiepw 28.88 mg/L (< 2.52) H 01/31/19 14:18 Gamma Globulins 0.2 g/dL (0.8-1.7) L 01/31/19 14:18 Abnorm Protein Band 1 Not Reportable 01/31/19 14:18 Abnorm Protein Band 2 Not Reportable 01/31/19 14:18 Abn Gamma Band 3 Serum Not Reportable 01/31/19 14:18 PEP Comment See note 01/31/19 14:18 TRE & SPEP Interp See note 01/31/19 14:18 Free [place] Light Chains 11.5 mg/L (3.3-19.4) 01/31/19 14:18 Free Lambda Light Chain 63387.5 mg/L (5.7-26.3) H 01/31/19 14:18 Free [place]/Lambda Ratio < 0.01 (0.26-1.65) L 01/31/19 14:18 Assessment and Plan (1) Multiple myeloma Overview: 83 y.o.?male?diagnosed with lamda light chain MM via BMA/Bx on 09/14/2018 with plasma cells accounting for 50-60%. He initially presented with acute kidney failure, hyperkalemia,?and severe anemia requiring blood transfusion. He has been on hemodialysis regularly and chemotherapy CyBorD since Sep 20, 2018. His chemotherapyCyBorD is as follows: 21-day cycle until disease progression or unacceptable toxicity Bortezomib 1.3 mg/m2 subQ on days 1, 4, 8 an 11 of 21 day cycle Dexamethasone 40 mg on days 1 through 4, 8 and 15 for cycle 1, then 40 mg weekly. Cyclophosphamide 450 mg/m2 on day 1 (50% dose reduction due to DEISY for Cycle 1#, and then 75% after).? ? Assessment: I talked with the patient, his daughter and his and his friend about the overall plan. I talked with that I will continue CyBorD while the patient is getting second opinion at [facility]. Plan: 1. Awaiting [facility] second opinion on 03/12/2019 2. CyBorD cycle 6# as follows: Bortezomib 1.3 mg/m2 subQ on days 1, 8 and 15 of 21 day cycle Dexamethasone 40 mg weekly. Cyclophosphamide 450 mg/m2 on day 1 3. Continue HD on Mon, Wed, Fri 4. RTC in 3 weeks for cyclcle 7#. (2) Acute renal failure Continue HD on Mon, Wed, Fri per Dr. Hannon
--- NOTE | 2019-02-14 08:23 | PC.NURSE ---
Patient's had called in on 02/12/2019 to report in [facility] and questioning whether he should have chemo on . This nurse informed her of Dr. Moore's response that he will not give the planned chemo but that he should then be seen niru to replan chemo dates.
== END ==
PROVIDERS: PCP Internal Medicine; Visit Provider Internal Medicine Hematology & Oncology
DX: C90.00 Multiple myeloma not having achieved remission (principal); D64.9 Anemia, unspecified; I10 Essential (primary) hypertension; E03.9 Hypothyroidism, unspecified; I35.0 Nonrheumatic aortic (valve) stenosis; E78.5 Hyperlipidemia, unspecified; N17.9 Acute kidney failure, unspecified; Z99.2 Dependence on renal dialysis; Z87.891 Personal history of nicotine dependence
CPT/HCPCS: 36415; 80053; 82232; 82784; 83615; 83883; 84155; 84165; 85025; 85651; 86140; 86334; 99204; 99214

== ENCOUNTER → 2019-03-16 10:52 | Outpatient (CLI) | payer MEDICARE, OTHER, SELFPAY ==
[2018-11-10 11:59] VITALS: BMI 24.5
--- NOTE | 2019-03-16 | DI.RAD.S_ITS ---
PROCEDURE: XR HIP W PEL IF DONE LT 2V INDICATIONS: LEFT THIGH AND HIP R/O FRACTURE TECHNIQUE: 2 views of the hip were acquired. COMPARISON: [facility], MR, MR HIP LEFT WITHOUT CONTRAST, 02/08/2019, 22:26. [facility], CR, XR HIP 2 VIEWS LEFT, 02/08/2019, 15:40. FINDINGS: Bones: There is a small focal area of linear sclerosis identified along the inferior margin of the above femoral neck. No displaced fracture or dislocation is evident. Moderate degenerative changes of both hips are present in the sacroiliac joints. There may also be moderate degenerative changes of the lower lumbar spine. In the patient's known lytic lesions involving the left acetabulum and proximal femur are not well characterized on conventional radiographic imaging and were much better appreciated on the MRI. Soft tissues: No suspicious soft tissue calcifications or masses. Scattered phleboliths are seen. Large amount of stool is identified within the colon. IMPRESSION: 1. No displaced left hip fractures. 2. Probable stress fracture of the left femoral neck. The need for better characterization utilizing CT may be determined clinically. 3. The patient's known lytic lesions of the pelvis and left hip are not adequately seen on conventional radiographic imaging. Dictated by: Orlando Harris M.D. on 03/16/2019 at 12:04 Approved by: Orlando Harris M.D. on 03/16/2019 at 12:08
== END ==
PROVIDERS: PCP Internal Medicine; Referring Provider Internal Medicine; Visit Provider Internal Medicine
DX: M25.552 Pain in left hip (principal)
CPT/HCPCS: 73502

== ENCOUNTER 2019-03-16 15:40 | Emergency (ER) | payer MEDICARE, OTHER, SELFPAY ==
[2018-11-10 11:59] VITALS: BMI 24.5
[2019-03-16 15:47] VITALS: BP 129/80; PULSE 68; RESP 18; TEMP 36.3; O2SAT 100; BMI 22.9
--- NOTE | 2019-03-16 17:00 | DI.CT.S_ITS ---
PROCEDURE: CT PEL WO CON INDICATIONS: h/o lytic lesions, L hip pain TECHNIQUE: Noncontrast 3 mm axial sections acquired through the bony pelvis, with coronal and sagittal reformatting. COMPARISON: [facility], MR, MR HIP LEFT WITHOUT CONTRAST, 02/08/2019, 22:26. [facility], CR, XR HIP W PEL IF DONE LT 2V, 03/16/2019, 10:54. FINDINGS: Image quality: Excellent. Bones: Subtle permeative lytic lesions involving both femoral heads and necks. Nondisplaced fracture of the base of the femoral neck of the left hip. Subtle permeative clinical lesions in the iliac bones. Soft tissues: Enlarged prostate. Distended bladder. N as a thin wall. Prominent diverticulum off the left base of the bladder. No inguinal adenopathy. Left hip joint effusion. IMPRESSION: 1. Subtle diffuse permeative lytic process involving the pelvis and hips. 2. Nondisplaced fracture of the inferior aspect of the left femoral neck. Dictated by: Gennaro Ball M.D. on 03/16/2019 at 17:54 Approved by: Gennaro Ball M.D. on 03/16/2019 at 17:58
--- NOTE | 2019-03-16 17:00 | DI.CT.S_ITS ---
PROCEDURE: CT LE LT W CON INDICATIONS: h/o lytic lesions, L leg and hip pain TECHNIQUE: Noncontrast 3 mm axial sections acquired of the left lower leg from hip to just above the ankle. The ankle was not imaged. Coronal and sagittal reformatted images were also provided. COMPARISON: [facility], CT, CT PEL WO CON, 03/16/2019, 17:23. [facility], MR, MR HIP LEFT WITHOUT CONTRAST, 02/08/2019, 22:26. FINDINGS: Image quality: Diagnostic. Bones: There is a transverse fracture through the base of the cervical neck, which may be pathologic. Multiple lytic lesions are evident involving the proximal femur, particularly involving the femoral head and the adjacent acetabulum. No adjacent acetabular fractures are evident. However, there is periosteal elevation of the medial margin of the acetabulum. Otherwise, the remainder of the osseous structures of the imaged portions of the left lower leg are unremarkable. Soft tissues: The soft tissues of the left lower leg are essentially within normal limits with the exception of moderate edema about the left femoral neck and an associated joint effusion. An intramuscular hematoma versus fatty infiltration is evident involving the abductor adele muscle. No significant knee joint effusion is identified. Scattered vascular calcifications of the left lower leg are evident. No drainable or loculated fluid collections are present. IMPRESSION: 1. Nondisplaced fracture through the base of the left femoral neck. Given lytic lesions involving the proximal femur, this could potentially represent a pathologic fracture. 2. Lytic lesions involving the left acetabulum are suspicious for the patient's known multiple myeloma. 3. Left hip effusion with overlying soft tissue edema. 4. No additional fractures of the imaged left lower leg. Dictated by: Orlando Harris M.D. on 03/16/2019 at 16:56 Approved by: Orlando Harris M.D. on 03/16/2019 at 17:07
--- NOTE | 2019-03-16 17:05 | ED.EXTPRO ---
HPI - Extremity Problem <KAIDEN Barron - Last Filed: 03/16/19 21:10> General Chief complaint: Extremity Problem,Nontraumatic Stated complaint: hip pain Time Seen by Provider: 03/16/19 16:32 Source: patient Mode of arrival: Wheelchair Limitations: no limitations History of Present Illness HPI Narrative: 83yo male with a history of dialysis, multiple melanoma, and left hip lytic lesions, presents emergency department requesting a CT scan as he received an x-ray today commended a CT scan. Patient's family stated she did not want to make multiple trips because he complains of increasing left hip pain and would rather have the CT scan today. Patient was treated a few months ago for sepsis which she continues take antibiotics for and left hip lytic lesions, he was hospitalized for few weeks. He has been discharged and he states he has been walking morning and night without significant pain. However over the past 3 days he noted that his left hip has became increasingly worse. Patient denies any numbness, tingling, swelling, redness, fevers, chills, nausea, vomiting, diarrhea, or other concerns. Related Data Home Medications Medication Instructions Recorded Confirmed levothyroxine 175 mcg PO DAILY 08/15/18 01/31/19 lovastatin 40 mg PO QPM 08/15/18 01/31/19 acetaminophen [Tylenol] 650 mg PO BIDAC 11/10/18 01/31/19 amlodipine 2.5 mg PO DAILY 11/10/18 01/31/19 dexamethasone 40 mg PO QWEEK 11/10/18 01/31/19 aspirin 81 mg PO DAILY 01/31/19 01/31/19 lisinopril 5 mg PO DAILY 01/31/19 01/31/19 psyllium husk [Metamucil] 3.4 g PO PRN PRN 01/31/19 01/31/19 Previous Rx's Medication Instructions Recorded triamcinolone acetonide 1 applic TOPICAL BID PRN #1 tube 11/11/18 Allergies Allergy/AdvReac Type Severity Reaction Status Date / Time codeine Allergy Unknown Verified 03/16/19 15:47 Penicillins Allergy Verified 03/16/19 15:47 Review of Systems <KAIDEN Barron - Last Filed: 03/16/19 21:10> Review of Systems Narrative: REVIEW OF SYSTEMS: GENERAL: Denies fever or chills. HENT: No head trauma. EYES: No double vision or vision loss. CARDIOVASCULAR: No chest pain or syncope. RESPIRATORY: No shortness of breath or cough. GASTROINTESTINAL: No nausea, vomiting, diarrhea, or constipation. GENITOURINARY: No flank pain or dysuria. MUSCULOSKELETAL: Complains of left hip pain, see HPI. INTEGUMENTARY: No rash, lesions, or pruritus. NEURO: No numbness, tingling. PSYCH: No behavior or mood changes. Patient History <KAIDEN Barron - Last Filed: 03/16/19 21:10> Medical History Aortic stenosis (Acute) Hemodialysis patient (Acute) History of chemotherapy (Acute) Hyperlipidemia (Acute) Hypertension (Acute) Hypothyroidism (Acute) Multiple myeloma (Acute) Surgical History History of tonsillectomy (Acute) S/P right rotator cuff repair (Acute) Family History Father Rheumatic fever with cardiac involvement Heart disease Typhoid fever Mother Parkinsons disease Dementia Brother No problems noted. Brother Heart disease Social History household members: spouse Smoking Status: Former smoker alcohol intake: current substance use type: does not use Smoking Status: Former smoker alcohol intake frequency: holidays/special occasions only Substance Use Type: does not use Exam <KAIDEN Barron - Last Filed: 03/16/19 21:10> Initial Vital Signs Initial Vital Signs: Vital Signs Temperature 97.3 F L 03/16/19 15:47 Pulse Rate 68 03/16/19 15:47 Respiratory Rate 18 03/16/19 15:47 Blood Pressure 129/80 03/16/19 15:47 Pulse Oximetry 100 03/16/19 15:47 PHYSICAL EXAMINATION: GENERAL: Well groomed, alert, and cooperative. Answers questions promptly and appropriately. Vital signs noted. HENT: Normocephalic, atraumatic. EYES: Symmetrical, sclera white, no periorbital swelling. CARDIOVASCULAR: S1 and S2 sounds normal. Regular rate and rhythm, no murmurs, clicks, or bruits. No pedal edema. RESPIRATORY: Normal respiratory rate, trachea midline, airway patent. No stridor, nasal flaring or accessory muscle use. Lungs are clear in all [place]. MUSCULOSKELETAL: Tenderness noted to external aspect of left hip, limited flexion and extension due to pain. No shortening or internal or external rotation noted. Equal tone and mass bilaterally. No tenderness to palpation of pelvis. EXTREMITIES: CMS intact. No pedal edema. Pedal pulses 2+ intact bilaterally. SKIN: Warm, dry, soft, appropriate color for ethnicity. No lesions, rashes, or wounds. NEURO: Alert and Oriented X 3. No sensory deficits. PSYCH: Appropriate affect and mood. <Madonna Winters MD - Last Filed: 03/30/19 18:38> Initial Vital Signs Initial Vital Signs: Vital Signs Temperature 97.3 F L 03/16/19 15:47 Pulse Rate 68 03/16/19 15:47 Respiratory Rate 18 03/16/19 15:47 Blood Pressure 129/80 03/16/19 15:47 Pulse Oximetry 100 03/16/19 15:47 Course <KAIDEN Barron - Last Filed: 03/16/19 21:10> Course Course Narrative: I spoke with the patient and his daughter about the results of the CT scans. I explained that recommended care was for an orthopedic consult, possible surgery, admission, and transfer to facility I can perform inpatient dialysis. Patient stated ?I do not want surgery and I do not want to be admitted, I want to go home tonight. Daughter explained that they are attempting to set up hospice next week and have discussed stopping dialysis. Patient confirm this. He states his pain is well managed at this time with Tylenol and oxycodone. Daughter states they would rather be discharged and have a follow-up on Monday. I explained to patient that his bone is likely to not heal and the damage could worsen causing chronic fractures and or internal bleeding and increased mortality. Patient stated I know and that is okay, I would like to go home. Orders Ordered: ED Orders 03/16/19 17:00 CT LE LT wo con Stat CT pelvis wo con Stat 03/16/19 18:14 XR chest 1V Stat Consultations Consultation #1: Patient staffed with Dr. Winters. Vital Signs Vital signs: Vital Signs - 8 hr 03/16/19 15:47 Temperature 97.3 F L Pulse Rate 68 Respiratory Rate 18 Blood Pressure 129/80 Pulse Oximetry 100 <Madonna Winters MD - Last Filed: 03/30/19 18:38> Orders Ordered: ED Orders 03/16/19 17:00 CT LE LT wo con Stat CT pelvis wo con Stat 03/16/19 18:14 XR chest 1V Stat Vital Signs Vital signs: Vital Signs - 8 hr 03/16/19 15:47 Temperature 97.3 F L Pulse Rate 68 Respiratory Rate 18 Blood Pressure 129/80 Pulse Oximetry 100 MDM - Extremity (Nontraumatic) <KAIDEN Barron - Last Filed: 03/16/19 21:10> Medical Records Attestation: I reviewed the patient's medical records. Lab Data Attestation: I reviewed the patient's lab results. Imaging Data CT pelvis: Radiologist's Impression: [address] [address] [address] Scan Report Signed Patient: Brad Benoit [facility]#: [id number] : 6Acct:[id number] Age/Sex: 83 / MDate of Service: 03/16/19 Loc: ED Accession Number: [id number] Procedure: CT pelvis wo con Ordering Provider: Vilma Sheffield PROCEDURE: CT PEL WO CON INDICATIONS: h/o lytic lesions, L hip pain TECHNIQUE: Noncontrast 3 mm axial sections acquired through the bony pelvis, with coronal and sagittal reformatting. COMPARISON: [facility], MR, MR HIP LEFT WITHOUT CONTRAST, 02/08/2019, 22:26. [facility], CR, XR HIP W PEL IF DONE LT 2V, 03/16/2019, 10:54. FINDINGS: Image quality: Excellent. Bones: Subtle permeative lytic lesions involving both femoral heads and necks. Nondisplaced fracture of the base of the femoral neck of the left hip. Subtle permeative clinical lesions in the iliac bones. Soft tissues: Enlarged prostate. Distended bladder. N as a thin wall. Prominent diverticulum off the left base of the bladder. No inguinal adenopathy. Left hip joint effusion. IMPRESSION: 1. Subtle diffuse permeative lytic process involving the pelvis and hips. 2. Nondisplaced fracture of the inferior aspect of the left femoral neck. Dictated by: Gennaro Ball M.D. on 03/16/2019 at 17:54 Approved by: Gennaro Ball M.D. on 03/16/2019 at 17:[address]: Radiologist's Impression: [address] [address] [address] Scan Report Signed Patient: Brad Benoit [facility]#: [id number] : 6Acct:[id number] Age/Sex: 83 / MDate of Service: 03/16/19 Loc: ED Accession Number: [id number] Procedure: CT LE LT wo con Ordering Provider: Vilma Sheffield PROCEDURE: CT LE LT W CON INDICATIONS: h/o lytic lesions, L leg and hip pain TECHNIQUE: Noncontrast 3 mm axial sections acquired of the left lower leg from hip to just above the ankle. The ankle was not imaged. Coronal and sagittal reformatted images were also provided. COMPARISON: [facility], CT, CT PEL WO CON, 03/16/2019, 17:23. [facility], MR, MR HIP LEFT WITHOUT CONTRAST, 02/08/2019, 22:26. FINDINGS: Image quality: Diagnostic. Bones: There is a transverse fracture through the base of the cervical neck, which may be pathologic. Multiple lytic lesions are evident involving the proximal femur, particularly involving the femoral head and the adjacent acetabulum. No adjacent acetabular fractures are evident. However, there is periosteal elevation of the medial margin of the acetabulum. Otherwise, the remainder of the osseous structures of the imaged portions of the left lower leg are unremarkable. Soft tissues: The soft tissues of the left lower leg are essentially within normal limits with the exception of moderate edema about the left femoral neck and an associated joint effusion. An intramuscular hematoma versus fatty infiltration is evident involving the abductor adele muscle. No significant knee joint effusion is identified. Scattered vascular calcifications of the left lower leg are evident. No drainable or loculated fluid collections are present. IMPRESSION: 1. Nondisplaced fracture through the base of the left femoral neck. Given lytic lesions involving the proximal femur, this could potentially represent a pathologic fracture. 2. Lytic lesions involving the left acetabulum are suspicious for the patient's known multiple myeloma. 3. Left hip effusion with overlying soft tissue edema. 4. No additional fractures of the imaged left lower leg. Dictated by: Orlando Harris M.D. on 03/16/2019 at 16:56 Approved by: Orlando Harris M.D. on 03/16/2019 at 17:[address] [facility] Narrative Medical decision making narrative: 83-year-old male presenting for increasing left hip pain and concern after a previous x-ray taken today that was ordered by his primary care provider. Left femoral neck fracture and lytic lesions were found to hip and pelvis. This is most likely due to his multiple myeloma. I recommended Surgical consultation admission, and most likely transfer to [facility] due to need for dialysis. However, patient declined as stated above. He states that he wants to be put on hospice next week and his daughter confirms this as they have a plan in place. He requested to be discharged at this time. He declined any further need for pain medication. He was aware that this condition could worsen and most likely will not heal, this could cause bleeding, more fractures, and other significant injuries. Patient verbalized understanding and stated that he would like to be discharged home still. Discharge Plan Departure Patient Disposition: Home Clinical Impression: Lytic bone lesion of hip Closed fracture of left hip Qualifiers: Encounter type: initial encounter Qualified Code(s): S72.002A - Fracture of unspecified part of neck of left femur, initial encounter for closed fracture Discharge Date/Time: 03/16/19 20:46 Instructions: DI for Hip Fracture Activity Restrictions/Additional Instructions: Thank you for entrusting me with your care today. As discussed, you are requesting discharge and are declining the option for surgery, transfer, and hospital admission for a hip fracture and lytic lesions of the hip and pelvis. We also discussed that your hip will not heal. It is advised that in this case try to decrease the amount of diffuse in weight that you put on your hip by using a urinal and your wheelchair to move around room. If your pain becomes unmanageable or you develop other concerning symptoms such as high fevers, blood pressure, syncope, chest pain, shortness of breath, or change your mind about the plan of care, return to the emergency department. I suggest following up with your primary care provider or oncologist next week for further discussion about your hip and pain management. Prescriptions: No Action levothyroxine 175 mcg tablet 175 mcg PO DAILY RF: 0 lovastatin 40 mg Tablet 40 mg PO QPM RF: 0 amlodipine 2.5 mg tablet 2.5 mg PO DAILY RF: 0 dexamethasone 4 mg tablet 40 mg PO QWEEK RF: 0 acetaminophen [Tylenol] 325 mg Tablet 650 mg PO BIDAC RF: 0 triamcinolone acetonide 0.1 % Ointment 1 applic topical BID PRN (Reason: Rash) Qty: 1 RF: 0 aspirin 81 mg Tablet,Delayed Release (Dr/Ec) 81 mg PO DAILY RF: 0 lisinopril 5 mg Tablet 5 mg PO DAILY RF: 0 Metamucil 3.4 gram/5.4 gram Powder 3.4 g PO PRN PRN (Reason: Constipation) RF: 0 Referrals: Jay Benjamin MD [Primary Care Provider] -
--- NOTE | 2019-03-16 18:14 | DI.RAD.S_ITS ---
PROCEDURE: XR CHEST 1V INDICATIONS: Weakness TECHNIQUE: One view of the chest was acquired. COMPARISON: None. FINDINGS: Surgical changes and devices: Tunneled dialysis catheter. Lungs and pleura: Lungs are clear. No pleural effusions or pneumothorax. Mediastinum: Mediastinal contours appear normal. Top normal heart size. Bones and chest wall: No suspicious bony lesions. Overlying soft tissues appear unremarkable. IMPRESSION: No evidence acute pulmonary process. Dictated by: Gennaro Ball M.D. on 03/16/2019 at 18:53 Approved by: Gennaro Ball M.D. on 03/16/2019 at 18:53
== END 2019-03-16 20:46 | disposition home or self-care (01) ==
PROVIDERS: Emergency Provider Nurse Practitioner; PCP Internal Medicine
DX: S72.002A Fracture of unspecified part of neck of left femur, initial encounter for closed fracture (principal); M89.8X5 Other specified disorders of bone, thigh; R53.1 Weakness
CPT/HCPCS: 71045; 72192; 73502; 73700; 99281; 99284